=== PATIENT | female | born 1970 | race Caucasian/White ===

== ENCOUNTER → 2016-11-24 | Outpatient (CLI) | payer OTHER ==
[~2016-11-24] MED LIST: ASP325TEC PO; DULO30CA PO; FAMO20TA5 PO; HYDR-1231 PO; HYOS0.1217 PO; IBP200T PO; LISI-556 PO; LISI1TAB10 PO; LORA0.5T PO; NF-ESOM40C PO; NFPRILOC40 PO; QUIN1TAB PO; SCR1T1 PO; SULF1TAB7 PO; TRAM50TA2 PO
--- NOTE | 2016-11-24 13:16 | Diagnostic Imaging Report ---
Pelvic ultrasound. INDICATION: Pelvic pain. FINDINGS: There are no previous pelvic ultrasound examinations available for comparison. CT abdomen/pelvis exam of 12/28/2014 revealed that the uterus was surgically absent. There also appeared to be a few mesenteric nodes within the abdomen and pelvis. The largest of these nodes measured only 1.5 cm. On this study, the right ovary is identified. There is a 3.1 x 3.6 x 2.0 cm hypoechoic lesion associated with the superior pole of the right ovary. This has the appearance of a benign cyst. The left ovary could not be identified. There is no solid pelvic mass or free fluid collection evident. IMPRESSION: 1. There is a 3.1 x 3.6 x 2.0 cm benign-appearing cyst associated with the right ovary. There is no acute pelvic abnormality noted otherwise. 2. The left ovary could not be identified. 3. The uterus is surgically absent. Dictated by: Dictated on workstation # [id number]
--- NOTE | 2016-11-24 19:19 | Diagnostic Imaging Report ---
Digital mammogram bilateral screening. This is the patient's baseline study. At this time, there are no current complaints. The current study was also evaluated with a Computer Aided Detection (CAD) system. There are scattered fibroglandular densities in both breasts which could obscure a lesion. Deep in the medial aspect of the left breast in the 9 o'clock position approximately 15 CM from the nipple there is a group of 7 or 8 microcalcifications. These calcifications do not have a threatening appearance. Even so, I would recommend that they can be compressed and magnified in the ML and CC projections so that they can be better characterized. There is no primary or secondary sign of malignancy noted otherwise. IMPRESSION: Additional mammographic views of the left breast would be recommended for further study. ACR BI-RADS Category 0: Incomplete. (Needs additional imaging evaluation). Result letter will be mailed to the patient. Note: At least 10% of breast cancer is not imaged by mammography. Dictated by: Dictated on workstation # [id number]
== END ==
LOC: RAD 09:37
PROVIDERS: ATTEND Obstetrics & Gynecology
DX: Z12.31 Encounter for screening mammogram for malignant neoplasm of breast (principal); R92.0 Mammographic microcalcification found on diagnostic imaging of breast; N83.201 Unspecified ovarian cyst, right side; Z90.710 Acquired absence of both cervix and uterus; R10.2 Pelvic and perineal pain; Z87.42 Personal history of other diseases of the female genital tract
CPT/HCPCS: 76830; 76856

== ENCOUNTER → 2016-12-09 | Outpatient (CLI) | payer OTHER ==
--- OUTSIDE RECORDS SUMMARY | 2016-12-09 08:14 | XMS REPORT | Continuity of Care Document ---
Author Author [facility] Organization [facility] Address Unknown Phone Unavailable Allergies Active Description Code Type Severity Reaction Onset Reported/Identified Relationship to Patient Clinical Status Yes Percocet Drug Allergy N/A N/A 03/19/2009 Yes Percodan Drug Allergy N/A N/A 03/19/2009 Yes Percocet Drug Allergy 03/19/2009 Yes Percodan Drug Allergy 03/19/2009 Yes acetaminophen [id number] Drug Allergy Mild N/A 06/15/2014 Yes ENVIRONMENTAL ENVIRONMENTAL Mild N/A 06/15/2014 Yes oxycodone [id number] Drug Allergy Mild N/A 06/15/2014 Medications Problems Date Dx Coded Attending Type Code Diagnosis Diagnosed By 12/10/2008 401.1 BENIGN ESSENTIAL HYPERTENSION 12/10/2008 784.0 Headache 12/10/2008 PHILIP GOFF, MELANI S 401.1 BENIGN ESSENTIAL HYPERTENSION 12/10/2008 PHILIP GOFF, MELANI S 784.0 Headache 12/10/2008 PHILIP GOFF, MELANI S 401.1 BENIGN ESSENTIAL HYPERTENSION 12/10/2008 PHILIP GOFF, MELANI S 784.0 Headache 12/10/2008 PHILIP GOFF MELANI S 401.1 BENIGN ESSENTIAL HYPERTENSION 12/10/2008 PHILIP GOFF, MELANI S 784.0 Headache 12/10/2008 TAIWO DRAINAGE ENGINEER, VALERIE D 401.1 BENIGN ESSENTIAL HYPERTENSION 12/10/2008 TAIWO DRAINAGE ENGINEER, VALERIE D 784.0 Headache 12/10/2008 TAIWO DRAINAGE ENGINEER, VALERIE D 401.1 BENIGN ESSENTIAL HYPERTENSION 12/10/2008 TAIWO DRAINAGE ENGINEER, VALERIE D 784.0 Headache 12/10/2008 PHILIP GOFF MELANI S 401.1 BENIGN ESSENTIAL HYPERTENSION 12/10/2008 PHILIP GOFF MELANI S 784.0 Headache 12/10/2008 PHILIP WAITER, MELANI S 401.1 BENIGN ESSENTIAL HYPERTENSION 12/10/2008 PHILIP WAITER, MELANI S 784.0 Headache 12/10/2008 PHILIP WAITER, MELANI S 401.1 BENIGN ESSENTIAL HYPERTENSION 12/10/2008 PHIILP WAITER, MELANI S 784.0 Headache 12/10/2008 PHILIP WAITER, MELANI S 401.1 BENIGN ESSENTIAL HYPERTENSION 12/10/2008 PHILIP WAITER, MELANI S 784.0 Headache 12/10/2008 PHILIP WAITER, MELANI S 401.1 BENIGN ESSENTIAL HYPERTENSION 12/10/2008 PHILIP WAITER, MELANI S 784.0 Headache 12/10/2008 PHILIP WAITER, MELANI S 401.1 BENIGN ESSENTIAL HYPERTENSION 12/10/2008 PHILIP WAITER, MELANI S 784.0 Headache 12/10/2008 PHILIP WAITER, MELANI S 401.1 BENIGN ESSENTIAL HYPERTENSION 12/10/2008 PHILIP WAITER, MELANI S 784.0 Headache 12/10/2008 PHILIP WAITER, MELANI S 401.1 BENIGN ESSENTIAL HYPERTENSION 12/10/2008 PHILIP WAITER, MELANI S 784.0 Headache 12/10/2008 PHILIP WAITER, MELANI S 401.1 BENIGN ESSENTIAL HYPERTENSION 12/10/2008 PHILIP WAITER, MELANI S 784.0 Headache 12/10/2008 PHILIP WAITER, MELANI S 401.1 BENIGN ESSENTIAL HYPERTENSION 12/10/2008 PHILIP WAITER, MELANI S 784.0 Headache 12/10/2008 PHILIP WAITER, MELANI S 401.1 BENIGN ESSENTIAL HYPERTENSION 12/10/2008 PHILIP WAITER, MELANI S 784.0 Headache 12/10/2008 PHILIP WAITER, MELANI S 401.1 BENIGN ESSENTIAL HYPERTENSION 12/10/2008 PHILIP WAITER, MELANI S 784.0 Headache 12/10/2008 PHILIP WAITER, MELANI S 401.1 BENIGN ESSENTIAL HYPERTENSION 12/10/2008 PHILIP WAITER, MELANI S 784.0 Headache 12/10/2008 FANTASMA SHAH, SAM Covarrubias 401.1 BENIGN ESSENTIAL HYPERTENSION 12/10/2008 SAM MEEK PHD 784.0 Headache 12/10/2008 MELANI PALACIOS APRN S 401.1 BENIGN ESSENTIAL HYPERTENSION 12/10/2008 TOYA PALACIOS APRNNDA S 784.0 Headache 03/19/2009 724.2 lower back pain 03/19/2009 V72.31 Pelvic Exam (internal) 03/19/2009 V74.5 Visit For: Screening Exam Bact/spirochetal Venereal Disease 03/19/2009 PHILIP GOFF MELANI S 724.2 lower back pain 03/19/2009 TOYA PALACIOS APRNNDA S V72.31 Pelvic Exam (internal) 03/19/2009 TOYA PALACIOS APRNNDA S V74.5 Visit For: Screening Exam Bact/ spirochetal Venereal Disease 03/19/2009 TOYA PALACIOS APRNNDA S 724.2 lower back pain 03/19/2009 TOYA PALACIOS APRNNDA S V72.31 Pelvic Exam (internal) 03/19/2009 TOYA PALACIOS APRNNDA S V74.5 Visit For: Screening Exam Bact/ spirochetal Venereal Disease 03/19/2009 TOYA PALACIOS APRNNDA S 724.2 lower back pain 03/19/2009 TOYA PALACIOS APRNNDA S V72.31 Pelvic Exam (internal) 03/19/2009 TOYA PALACIOS APRNNDA S V74.5 Visit For: Screening Exam Bact/ spirochetal Venereal Disease 03/19/2009 TAIWO DRAINAGE ENGINEER, VALERIE D 724.2 lower back pain 03/19/2009 TAIWO DRAINAGE ENGINEER, VALERIE D V72.31 Pelvic Exam (internal) 03/19/2009 TAIWO DRAINAGE ENGINEER, VALERIE D V74.5 Visit For: Screening Exam Bact/spirochetal Venereal Disease 03/19/2009 TAIWO DRAINAGE ENGINEER, VALERIE D 724.2 lower back pain 03/19/2009 TAIWO DRAINAGE ENGINEER, VALERIE D V72.31 Pelvic Exam (internal) 03/19/2009 TAIWO DRAINAGE ENGINEER, VALERIE D V74.5 Visit For: Screening Exam Bact/spirochetal Venereal Disease 03/19/2009 PHILIP WAITER, MELANI S 724.2 lower back pain 03/19/2009 PHILIP WAITER, MELANI S V72.31 Pelvic Exam (internal) 03/19/2009 PHILIP WAITER, MELANI S V74.5 Visit For: Screening Exam Bact/ spirochetal Venereal Disease 03/19/2009 PHILIP WAITER, MELANI S 724.2 lower back pain 03/19/2009 PHILIP WAITER, MELANI S V72.31 Pelvic Exam (internal) 03/19/2009 PHILIP WAITER, MELANI S V74.5 Visit For: Screening Exam Bact/ spirochetal Venereal Disease 03/19/2009 PHILIP WAITER, MELANI S 724.2 lower back pain 03/19/2009 PHILIP WAITER, MELANI S V72.31 Pelvic Exam (internal) 03/19/2009 PHILIP WAITER, MELANI S V74.5 Visit For: Screening Exam Bact/ spirochetal Venereal Disease 03/19/2009 PHILIP WAITER, MELANI S 724.2 lower back pain 03/19/2009 PHILIP WAITER, MELANI S V72.31 Pelvic Exam (internal) 03/19/2009 PHILIP WAITER, MELANI S V74.5 Visit For: Screening Exam Bact/ spirochetal Venereal Disease 03/19/2009 PHILIP WAITER, MELANI S 724.2 lower back pain 03/19/2009 PHILIP WAITER, MELANI S V72.31 Pelvic Exam (internal) 03/19/2009 PHILIP WAITER, MELANI S V74.5 Visit For: Screening Exam Bact/ spirochetal Venereal Disease 03/19/2009 PHILIP WAITER, MELANI S 724.2 lower back pain 03/19/2009 PHILIP WAITER, MELANI S V72.31 Pelvic Exam (internal) 03/19/2009 PHILIP WAITER, MELANI S V74.5 Visit For: Screening Exam Bact/ spirochetal Venereal Disease 03/19/2009 PHILIP WAITER, MELANI S 724.2 lower back pain 03/19/2009 PHILIP WAITER, MELANI S V72.31 Pelvic Exam (internal) 03/19/2009 PHILIP WAITER, MELANI S V74.5 Visit For: Screening Exam Bact/ spirochetal Venereal Disease 03/19/2009 PHILIP WAITER, MELANI S 724.2 lower back pain 03/19/2009 PHILIP WAITER, MELANI S V72.31 Pelvic Exam (internal) 03/19/2009 PHILIP WAITER, MELANI S V74.5 Visit For: Screening Exam Bact/ spirochetal Venereal Disease 03/19/2009 PHILIP WAITER, MELANI S 724.2 lower back pain 03/19/2009 PHILIP WAITER, MELANI S V72.31 Pelvic Exam (internal) 03/19/2009 PHILIP WAITER, MELANI S V74.5 Visit For: Screening Exam Bact/ spirochetal Venereal Disease 03/19/2009 PHILIP WAITER, MELANI S 724.2 lower back pain 03/19/2009 PHILIP WAITER, MELANI S V72.31 Pelvic Exam (internal) 03/19/2009 PHILIP WAITER, MELANI S V74.5 Visit For: Screening Exam Bact/ spirochetal Venereal Disease 03/19/2009 PHILIP WAITER, MELANI S 724.2 LOWER BACK PAIN 03/19/2009 PHIILP WAITER, MELANI S V72.31 Pelvic Exam (internal) 03/19/2009 PHILIP WAITER, MELANI S V74.5 Visit For: Screening Exam Bact/ spirochetal Venereal Disease 03/19/2009 PHILIP WAITER, MELANI S 724.2 LOWER BACK PAIN 03/19/2009 PHILIP WAITER, MELANI S V72.31 Pelvic Exam (internal) 03/19/2009 PHILIP WAITER, MELANI S V74.5 Visit For: Screening Exam Bact/ spirochetal Venereal Disease 03/19/2009 PHILIP WAITER, MELANI S 724.2 LOWER BACK PAIN 03/19/2009 PHILIP WAITER, MELANI S V72.31 Pelvic Exam (internal) 03/19/2009 PHILIP WAITER, MELANI S V74.5 Visit For: Screening Exam Bact/ spirochetal Venereal Disease 03/19/2009 FANTASMA SHAH, SAM Covarrubias 724.2 LOWER BACK PAIN 03/19/2009 FANTASMA SHAH, SAM Covarrubias V72.31 Pelvic Exam (internal) 03/19/2009 FANTASMA SHAH, SAM Covarrubias V74.5 Visit For: Screening Exam Bact/ spirochetal Venereal Disease 03/19/2009 PHILIP WAITER, MELANI S 724.2 lower back pain 03/19/2009 PHILIP WAITER, MELANI S V72.31 Pelvic Exam (internal) 03/19/2009 PHILIP WAITER, MELANI S V74.5 Visit For: Screening Exam Bact/ spirochetal Venereal Disease 09/29/2010 Ot 278.00 09/29/2010 Ot 305.1 09/29/2010 Ot 311 09/29/2010 Ot 401.9 09/29/2010 Ot 530.81 09/29/2010 Ot 746.85 09/29/2010 Ot 786.59 09/29/2010 Ot V10.41 09/29/2010 Ot V85.38 10/13/2010 300.00 ANXIETY UNSPEC 10/13/2010 PHILIP WAITER, MELANI S 300.00 ANXIETY UNSPEC 10/13/2010 PHILIP WAITER, MELANI S 300.00 ANXIETY UNSPEC 10/13/2010 PHILIP WAITER, MELANI S 300.00 ANXIETY UNSPEC 10/13/2010 JEN MARAVILLA LCPCRY D 300.00 ANXIETY UNSPEC 10/13/2010 JEN MARAVILLA LCPCRY D 300.00 ANXIETY UNSPEC 10/13/2010 PHILIP WAITER, MELANI S 300.00 ANXIETY UNSPEC 10/13/2010 PHILIP WAITER, MELANI S 300.00 ANXIETY UNSPEC 10/13/2010 PHILIP WAITER, MELANI S 300.00 ANXIETY UNSPEC 10/13/2010 PHILIP WAITER, MELANI S 300.00 ANXIETY UNSPEC 10/13/2010 PHILIP WAITER, MELANI S 300.00 ANXIETY UNSPEC 10/13/2010 PHILIP WAITER, MELANI S 300.00 ANXIETY UNSPEC 10/13/2010 PHILIP WAITER, MELANI S 300.00 ANXIETY UNSPEC 10/13/2010 PHILIP WAITER, MELANI S 300.00 ANXIETY UNSPEC 10/13/2010 PHILIP WAITER, MELANI S 300.00 ANXIETY UNSPEC 10/13/2010 PHILIP WAITER, MELANI S 300.00 ANXIETY UNSPEC 10/13/2010 PHILIP WAITER, MELANI S 300.00 ANXIETY UNSPEC 10/13/2010 PHILIP WAITER, MELANI S 300.00 ANXIETY UNSPEC 10/13/2010 PHILIP WAITER, MELANI S 300.00 ANXIETY UNSPEC 10/13/2010 FANTASMA SHAH, SAM Covarrubias 300.00 ANXIETY UNSPEC 10/13/2010 PHILIP WAITER, MELANI S 300.00 ANXIETY UNSPEC 10/07/2011 V68.1 ISSUE OF REPEAT PRESCRIPTIONS 10/07/2011 PHILIP WAITER, MELANI S V68.1 ISSUE OF REPEAT PRESCRIPTIONS 10/07/2011 PHILIP WAITER, MELANI S V68.1 ISSUE OF REPEAT PRESCRIPTIONS 10/07/2011 PHILIP WAITER, MELANI S V68.1 ISSUE OF REPEAT PRESCRIPTIONS 10/07/2011 TAIWO DRAINAGE ENGINEER, VALERIE D V68.1 ISSUE OF REPEAT PRESCRIPTIONS 10/07/2011 TAIWO DRAINAGE ENGINEER, VALERIE D V68.1 ISSUE OF REPEAT PRESCRIPTIONS 10/07/2011 PHILIP WAITER, MELANI S V68.1 ISSUE OF REPEAT PRESCRIPTIONS 10/07/2011 PHILIP WAITER, MELANI S V68.1 ISSUE OF REPEAT PRESCRIPTIONS 10/07/2011 PHILIP WAITER, MELANI S V68.1 ISSUE OF REPEAT PRESCRIPTIONS 10/07/2011 PHILIP WAITER, MELANI S V68.1 ISSUE OF REPEAT PRESCRIPTIONS 10/07/2011 PHILIP WAITER, MELANI S V68.1 ISSUE OF REPEAT PRESCRIPTIONS 10/07/2011 PHILIP WAITER, MELANI S V68.1 ISSUE OF REPEAT PRESCRIPTIONS 10/07/2011 PHILIP WAITER, MELANI S V68.1 ISSUE OF REPEAT PRESCRIPTIONS 10/07/2011 PHILIP WAITER, MELANI S V68.1 ISSUE OF REPEAT PRESCRIPTIONS 10/07/2011 PHILIP WAITER, MELANI S V68.1 ISSUE OF REPEAT PRESCRIPTIONS 10/07/2011 PHILIP WAITER, MELANI S V68.1 ISSUE OF REPEAT PRESCRIPTIONS 10/07/2011 TOYA PALACIOS APRNNDA S V68.1 ISSUE OF REPEAT PRESCRIPTIONS 10/07/2011 TOYA PALACIOS APRNNDA S V68.1 ISSUE OF REPEAT PRESCRIPTIONS 10/07/2011 TOYA PALACIOS APRNNDA S V68.1 ISSUE OF REPEAT PRESCRIPTIONS 10/07/2011 FANTASMA SHAH, SAM Covarrubias V68.1 ISSUE OF REPEAT PRESCRIPTIONS 10/07/2011 TOYA PALACIOS APRNNDA S V68.1 ISSUE OF REPEAT PRESCRIPTIONS 09/03/2012 311 DEPRESSIVE DISORDER NOS 09/03/2012 780.79 fatigue 09/03/2012 783.1 WEIGHT GAIN ABNORMAL 09/03/2012 TOYA PALACIOS APRNNDA S 311 DEPRESSIVE DISORDER NOS 09/03/2012 TOYA PALACIOS APRNNDA S 780.79 fatigue 09/03/2012 PHILIP WAITER, MELANI S 783.1 WEIGHT GAIN ABNORMAL 09/03/2012 TOYA PALACIOS APRNNDA S 311 DEPRESSIVE DISORDER NOS 09/03/2012 TOYA PALACIOS APRNNDA S 780.79 fatigue 09/03/2012 PHILIP WAITER, MELANI S 783.1 WEIGHT GAIN ABNORMAL 09/03/2012 TOYA PALACIOS APRNNDA S 311 DEPRESSIVE DISORDER NOS 09/03/2012 TOYA PALACIOS APRNNDA S 780.79 fatigue 09/03/2012 PHILIP WAITER, EMLANI S 783.1 WEIGHT GAIN ABNORMAL 09/03/2012 TAIWO DRAINAGE ENGINEER, VALERIE D 311 DEPRESSIVE DISORDER NOS 09/03/2012 TAIWO DRAINAGE ENGINEER, VALERIE D 780.79 fatigue 09/03/2012 TAIWO DRAINAGE ENGINEER, VALERIE D 783.1 WEIGHT GAIN ABNORMAL 09/03/2012 TAIWO DRAINAGE ENGINEER, VALERIE D 311 DEPRESSIVE DISORDER NOS 09/03/2012 TAIWO DRAINAGE ENGINEER, VALERIE D 780.79 fatigue 09/03/2012 TAIWO DRAINAGE ENGINEER, VALERIE D 783.1 WEIGHT GAIN ABNORMAL 09/03/2012 PHILIP GOFF MELANI S 311 DEPRESSIVE DISORDER NOS 09/03/2012 PHILIP GOFF MELANI S 780.79 fatigue 09/03/2012 TOYA PALACIOS APRNNDA S 783.1 WEIGHT GAIN ABNORMAL 09/03/2012 PHILIP WAITER, MELANI S 311 DEPRESSIVE DISORDER NOS 09/03/2012 PHILIP WAITER, MELANI S 780.79 fatigue 09/03/2012 PHILIP WAITER, MELANI S 783.1 WEIGHT GAIN ABNORMAL 09/03/2012 PHILIP WAITER, MELANI S 311 DEPRESSIVE DISORDER NOS 09/03/2012 PHILIP WAITER, MELANI S 780.79 fatigue 09/03/2012 PHILIP MARTINESN, MELANI S 783.1 WEIGHT GAIN ABNORMAL 09/03/2012 PHILIP WAITER, MELANI S 311 DEPRESSIVE DISORDER NOS 09/03/2012 PHILIP WAITER, MELANI S 780.79 fatigue 09/03/2012 PHILIP WAITER, MELANI S 783.1 WEIGHT GAIN ABNORMAL 09/03/2012 PHILIP WAITER, MELANI S 311 DEPRESSIVE DISORDER NOS 09/03/2012 PHILIP MARTINESN, MELANI S 780.79 fatigue 09/03/2012 PHILIP MARTINESN, MELANI S 783.1 WEIGHT GAIN ABNORMAL 09/03/2012 PHILIP MARTINESN, MELANI S 311 DEPRESSIVE DISORDER NOS 09/03/2012 PHILIP MARTINESN, MELANI S 780.79 fatigue 09/03/2012 PHILIP MARTINESN, MELANI S 783.1 WEIGHT GAIN ABNORMAL 09/03/2012 PHILIP MARTINESN, MELANI S 311 DEPRESSIVE DISORDER NOS 09/03/2012 PHILIP MARTINESN, MELANI S 780.79 fatigue 09/03/2012 PHILIP MARTINESN, MELANI S 783.1 WEIGHT GAIN ABNORMAL 09/03/2012 PHILIP MARTINESN, MELANI S 311 DEPRESSIVE DISORDER NOS 09/03/2012 PHILIP MARTINESN, MELANI S 780.79 fatigue 09/03/2012 PHILIP WAITER, MELANI S 783.1 WEIGHT GAIN ABNORMAL 09/03/2012 PHILIP WAITER, MELANI S 311 DEPRESSIVE DISORDER NOS 09/03/2012 PHILIP WAITER, MELANI S 780.79 fatigue 09/03/2012 PHILIP WAITER, MELANI S 783.1 WEIGHT GAIN ABNORMAL 09/03/2012 PHILIP WAITER, MELANI S 311 DEPRESSIVE DISORDER NOS 09/03/2012 PHILIP WAITER, MELANI S 780.79 fatigue 09/03/2012 PHILIP GOFF, MELAIN S 783.1 WEIGHT GAIN ABNORMAL 09/03/2012 PHILIP GOFF, MELANI S 311 DEPRESSIVE DISORDER NOS 09/03/2012 PHILIP MARTINESN, MELANI S 780.79 FATIGUE 09/03/2012 PHILIP MARTINESN, MELANI S 783.1 WEIGHT GAIN ABNORMAL 09/03/2012 PHILIP GOFF, MELANI S 311 DEPRESSIVE DISORDER NOS 09/03/2012 PHILIP MARTINESN, MELANI S 780.79 FATIGUE 09/03/2012 PHILIP MARTINESN, MELANI S 783.1 WEIGHT GAIN ABNORMAL 09/03/2012 PHILIP GOFF, MELANI S 311 DEPRESSIVE DISORDER NOS 09/03/2012 PHILIP GOFF, MELANI S 780.79 FATIGUE 09/03/2012 PHILIP GOFF, MELANI S 783.1 WEIGHT GAIN ABNORMAL 09/03/2012 SAM MEEK PHD 311 DEPRESSIVE DISORDER NOS 09/03/2012 SAM MEEK PHD 780.79 FATIGUE 09/03/2012 SAM MEEK PHD 783.1 WEIGHT GAIN ABNORMAL 09/03/2012 PHILIPGRETTA MARTINESN, MELANI S 311 DEPRESSIVE DISORDER NOS 09/03/2012 PHILIPGRETTA GOFF, MELANI S 780.79 fatigue 09/03/2012 PHILIPGRETTA MARTINESN, MELANI S 783.1 WEIGHT GAIN ABNORMAL 09/25/2012 530.81 ESOPHAGEAL REFLUX 09/25/2012 V76.10 BREAST CANCER SCREENING 09/25/2012 V76.2 CERVICAL CANCER SCREENING (PAP SMEAR) 09/25/2012 PHILIP WAITER, MELANI S 530.81 ESOPHAGEAL REFLUX 09/25/2012 PHILIP WAITER, MELANI S V76.10 BREAST CANCER SCREENING 09/25/2012 PHILIP WAITER, MELANI S V76.2 CERVICAL CANCER SCREENING (PAP SMEAR) 09/25/2012 PHILIP WAITER, MELANI S 530.81 ESOPHAGEAL REFLUX 09/25/2012 PHILIP WAITER, MELANI S V76.10 BREAST CANCER SCREENING 09/25/2012 PHILIP WAITER, MELANI S V76.2 CERVICAL CANCER SCREENING (PAP SMEAR) 09/25/2012 PHILIP WAITER, MELANI S 530.81 ESOPHAGEAL REFLUX 09/25/2012 PHILIP GOFF, MELANI S V76.10 BREAST CANCER SCREENING 09/25/2012 PHILIP GOFF, MELANI S V76.2 CERVICAL CANCER SCREENING (PAP SMEAR) 09/25/2012 TAIWO DRAINAGE ENGINEER, VALERIE D 530.81 ESOPHAGEAL REFLUX 09/25/2012 TAIWO DRAINAGE ENGINEER, VALERIE D V76.10 BREAST CANCER SCREENING 09/25/2012 TAIWO DRAINAGE ENGINEER, VALERIE D V76.2 CERVICAL CANCER SCREENING (PAP SMEAR) 09/25/2012 TAIWO DRAINAGE ENGINEER, VALERIE D 530.81 ESOPHAGEAL REFLUX 09/25/2012 TAIWO DRAINAGE ENGINEER, VALERIE D V76.10 BREAST CANCER SCREENING 09/25/2012 TAIWO DRAINAGE ENGINEER, VALERIE D V76.2 CERVICAL CANCER SCREENING (PAP SMEAR) 09/25/2012 PHILIP GOFF, MELANI S 530.81 ESOPHAGEAL REFLUX 09/25/2012 PHILIP GOFF, MELANI S V76.10 BREAST CANCER SCREENING 09/25/2012 PHILIP GOFF, MELANI S V76.2 CERVICAL CANCER SCREENING (PAP SMEAR) 09/25/2012 PHILIP GOFF, MELANI S 530.81 ESOPHAGEAL REFLUX 09/25/2012 PHILIP GOFF, MELANI S V76.10 BREAST CANCER SCREENING 09/25/2012 PHILIP GOFF, MELANI S V76.2 CERVICAL CANCER SCREENING (PAP SMEAR) 09/25/2012 PHILIP WAITER, MELANI S 530.81 ESOPHAGEAL REFLUX 09/25/2012 PHILIP GOFF, MELANI S V76.10 BREAST CANCER SCREENING 09/25/2012 PHILIP GOFF, MELANI S V76.2 CERVICAL CANCER SCREENING (PAP SMEAR) 09/25/2012 PHILIP WAITER, MELANI S 530.81 ESOPHAGEAL REFLUX 09/25/2012 PHILIP WAITER, MELANI S V76.10 BREAST CANCER SCREENING 09/25/2012 PHILIP WAITER, MELANI S V76.2 CERVICAL CANCER SCREENING (PAP SMEAR) 09/25/2012 PHILIP WAITER, MELANI S 530.81 ESOPHAGEAL REFLUX 09/25/2012 PHILIP GOFF, MELANI S V76.10 BREAST CANCER SCREENING 09/25/2012 PHILIP WAITER, MELANI S V76.2 CERVICAL CANCER SCREENING (PAP SMEAR) 09/25/2012 PHILIP WAITER, MELANI S 530.81 ESOPHAGEAL REFLUX 09/25/2012 PHILIP WAITER, MELANI S V76.10 BREAST CANCER SCREENING 09/25/2012 PHILIP WAITER, EMLANI S V76.2 CERVICAL CANCER SCREENING (PAP SMEAR) 09/25/2012 PHILIP WAITER, MELANI S 530.81 ESOPHAGEAL REFLUX 09/25/2012 PHILIP WAITER, MELANI S V76.10 BREAST CANCER SCREENING 09/25/2012 PHILIP WAITER, MELANI S V76.2 CERVICAL CANCER SCREENING (PAP SMEAR) 09/25/2012 PHILIP WAITER, MELANI S 530.81 ESOPHAGEAL REFLUX 09/25/2012 PHILIP WAITER, MELANI S V76.10 BREAST CANCER SCREENING 09/25/2012 PHILIP WAITER, MELANI S V76.2 CERVICAL CANCER SCREENING (PAP SMEAR) 09/25/2012 PHILIP WAITER, MELANI S 530.81 ESOPHAGEAL REFLUX 09/25/2012 PHILIP WAITER, MELANI S V76.10 BREAST CANCER SCREENING 09/25/2012 PHILIP WAITER, MELANI S V76.2 CERVICAL CANCER SCREENING (PAP SMEAR) 09/25/2012 PHILIP WAITER, MELANI S 530.81 ESOPHAGEAL REFLUX 09/25/2012 PHILIP WAITER, MELANI S V76.10 BREAST CANCER SCREENING 09/25/2012 PHILIP WAITER, MELANI S V76.2 CERVICAL CANCER SCREENING (PAP SMEAR) 09/25/2012 PHILIP WAITER, MELANI S 530.81 ESOPHAGEAL REFLUX 09/25/2012 PHILIP WAITER, MELANI S V76.10 BREAST CANCER SCREENING 09/25/2012 PHILIP WAITER, MELANI S V76.2 CERVICAL CANCER SCREENING (PAP SMEAR) 09/25/2012 PHILIP WAITER, MELANI S 530.81 ESOPHAGEAL REFLUX 09/25/2012 PHILIP WAITER, MELANI S V76.10 BREAST CANCER SCREENING 09/25/2012 PHILIP WAITER, MELANI S V76.2 CERVICAL CANCER SCREENING (PAP SMEAR) 09/25/2012 PHILIP GOFF, MELANI S 530.81 ESOPHAGEAL REFLUX 09/25/2012 PHILIP GOFF, MELANI S V76.10 BREAST CANCER SCREENING 09/25/2012 PHILIP GOFF, MELANI S V76.2 CERVICAL CANCER SCREENING (PAP SMEAR) 09/25/2012 SAM MEEK PHD 530.81 ESOPHAGEAL REFLUX 09/25/2012 FANTASMA SHAH, SAM Covarrubias V76.10 BREAST CANCER SCREENING 09/25/2012 SAM MEEK PHD V76.2 CERVICAL CANCER SCREENING (PAP SMEAR) 09/25/2012 PHILIP GOFF, MELANI S 530.81 ESOPHAGEAL REFLUX 09/25/2012 PHILIP GOFF, MELANI S V76.10 BREAST CANCER SCREENING 09/25/2012 PHILIP GOFF, MELANI S V76.2 CERVICAL CANCER SCREENING (PAP SMEAR) 10/20/2012 PHILIP GOFF, MELANI S 789.03 ABDOMINAL PAIN RIGHT LOWER QUADRANT 10/20/2012 PHILIP GOFF, MELANI S 789.03 ABDOMINAL PAIN RIGHT LOWER QUADRANT 10/20/2012 PHILIP GOFF, MELANI S 789.03 ABDOMINAL PAIN RIGHT LOWER QUADRANT 10/20/2012 TAIWO DRAINAGE ENGINEER, VALERIE D 789.03 ABDOMINAL PAIN RIGHT LOWER QUADRANT 10/20/2012 TAIWO DRAINAGE ENGINEER, VALERIE D 789.03 ABDOMINAL PAIN RIGHT LOWER QUADRANT 10/20/2012 PHILIP GOFF, MELANI S 789.03 ABDOMINAL PAIN RIGHT LOWER QUADRANT 10/20/2012 PHILIP GOFF, MELANI S 789.03 ABDOMINAL PAIN RIGHT LOWER QUADRANT 10/20/2012 PHILIP GOFF, MELANI S 789.03 ABDOMINAL PAIN RIGHT LOWER QUADRANT 10/20/2012 PHILIP WAITER, MELANI S 789.03 ABDOMINAL PAIN RIGHT LOWER QUADRANT 10/20/2012 PHILIP GOFF, MELANI S 789.03 ABDOMINAL PAIN RIGHT LOWER QUADRANT 10/20/2012 PHILIP GOFF, MELANI S 789.03 ABDOMINAL PAIN RIGHT LOWER QUADRANT 10/20/2012 PHILIP GOFF, MELANI S 789.03 ABDOMINAL PAIN RIGHT LOWER QUADRANT 10/20/2012 PHILIP GOFF, MELANI S 789.03 ABDOMINAL PAIN RIGHT LOWER QUADRANT 10/20/2012 PHILIP WAITER, MELANI S 789.03 ABDOMINAL PAIN RIGHT LOWER QUADRANT 10/20/2012 PHILIP WAITER, MELANI S 789.03 ABDOMINAL PAIN RIGHT LOWER QUADRANT 10/20/2012 PHILIP WAITER, MELANI S 789.03 ABDOMINAL PAIN RIGHT LOWER QUADRANT 10/20/2012 PHILIP WAITER, MELANI S 789.03 ABDOMINAL PAIN RIGHT LOWER QUADRANT 10/20/2012 PHILIP WAITER, MELANI S 789.03 ABDOMINAL PAIN RIGHT LOWER QUADRANT 10/20/2012 FANTASMA SHAH, SAM Covarrubias 789.03 ABDOMINAL PAIN RIGHT LOWER QUADRANT 12/12/2013 PHILIP WAITER, MELANI S 214.8 LIPOMA OF OTHER SPECIFIED SITES 12/12/2013 PHILIP WAITER, MELANI S 789.06 ABDOMINAL PAIN EPIGASTRIC 12/12/2013 PHILIP WAITER, MELANI S 214.8 LIPOMA OF OTHER SPECIFIED SITES 12/12/2013 PHILIP WAITER, MELANI S 789.06 ABDOMINAL PAIN EPIGASTRIC 12/12/2013 PHILIP WAITER, MELANI S 214.8 LIPOMA OF OTHER SPECIFIED SITES 12/12/2013 PHILIP WAITER, MELANI S 789.06 ABDOMINAL PAIN EPIGASTRIC 12/12/2013 PHILIP WAITER, MELANI S 214.8 LIPOMA OF OTHER SPECIFIED SITES 12/12/2013 PHILIP WAITER, MELANI S 789.06 ABDOMINAL PAIN EPIGASTRIC 12/12/2013 PHILIP WAITER, MELANI S 214.8 LIPOMA OF OTHER SPECIFIED SITES 12/12/2013 PHILIP WAITER, MELANI S 789.06 ABDOMINAL PAIN EPIGASTRIC 12/12/2013 PHILIP WAITER, MELANI S 214.8 LIPOMA OF OTHER SPECIFIED SITES 12/12/2013 PHILIP WAITER, MELANI S 789.06 ABDOMINAL PAIN EPIGASTRIC 12/12/2013 PHILIP WAITER, MELANI S 214.8 LIPOMA OF OTHER SPECIFIED SITES 12/12/2013 PHILIP WAITER, MELANI S 789.06 ABDOMINAL PAIN EPIGASTRIC 12/12/2013 PHILIP WAITER, MELANI S 214.8 LIPOMA OF OTHER SPECIFIED SITES 12/12/2013 PHILIP WAITER, MELANI S 789.06 ABDOMINAL PAIN EPIGASTRIC 12/12/2013 PHILIP WAITER, MELANI S 214.8 LIPOMA OF OTHER SPECIFIED SITES 12/12/2013 PHILIP WAITER, MELANI S 789.06 ABDOMINAL PAIN EPIGASTRIC 12/12/2013 PHILIP WAITER, MELANI S 214.8 LIPOMA OF OTHER SPECIFIED SITES 12/12/2013 PHILIP WAITER, MELANI S 789.06 ABDOMINAL PAIN EPIGASTRIC 12/12/2013 PHILIP WAITER, MELANI S 214.8 LIPOMA OF OTHER SPECIFIED SITES 12/12/2013 PHILIP WAITER, MELANI S 789.06 ABDOMINAL PAIN EPIGASTRIC 12/12/2013 PHILIP WAITER, MELANI S 214.8 LIPOMA OF OTHER SPECIFIED SITES 12/12/2013 PHILIP WAITER, MELANI S 789.06 ABDOMINAL PAIN EPIGASTRIC 12/12/2013 FANTASMA PHD, SAM Covarrubias 214.8 LIPOMA OF OTHER SPECIFIED SITES 12/12/2013 FANTASMA SHAH, SAM Covarrubias 789.06 ABDOMINAL PAIN EPIGASTRIC 12/26/2013 PHILPI WAITER, MELANI S 700 CALLUS/CORN 12/26/2013 PHILIP WAITER, MELANI S 700 CALLUS/CORN 12/26/2013 PHILIP WAITER, MELANI S 700 CALLUS/CORN 12/26/2013 PHILIP WAITER, MELANI S 700 CALLUS/CORN 12/26/2013 PHILIP WAITER, MELANI S 700 CALLUS/CORN 12/26/2013 PHILIP WAITER, MELANI S 700 CALLUS/CORN 12/26/2013 PHILIP WAITER, MELANI S 700 CALLUS/CORN 12/26/2013 PHILIP WAITER, MELANI S 700 CALLUS/CORN 12/26/2013 PHILIP WAITER, MELANI S 700 CALLUS/CORN 12/26/2013 PHILIP WAITER, MELANI S 700 CALLUS/CORN 12/26/2013 PHILIP WAITER, MELANI S 700 CALLUS/CORN 12/26/2013 FANTASMA SHAH, SAM Covarrubias 700 CALLUS/CORN 03/20/2014 PHILIP WAITER, MELANI S 787.99 OTHER SYMPTOMS INVOLVING DIGESTIVE SYSTEM 03/20/2014 PHILIP WAITER, MELANI S 787.99 OTHER SYMPTOMS INVOLVING DIGESTIVE SYSTEM 03/20/2014 PHILIP WAITER, MELANI S 787.99 OTHER SYMPTOMS INVOLVING DIGESTIVE SYSTEM 03/20/2014 PHILIP WAITER, MELANI S 787.99 OTHER SYMPTOMS INVOLVING DIGESTIVE SYSTEM 03/20/2014 PHILIP WAITER, MELANI S 787.99 OTHER SYMPTOMS INVOLVING DIGESTIVE SYSTEM 03/20/2014 PHILIP WAITER, MELANI S 787.99 OTHER SYMPTOMS INVOLVING DIGESTIVE SYSTEM 03/20/2014 PHILIP WAITER, MELANI S 787.99 OTHER SYMPTOMS INVOLVING DIGESTIVE SYSTEM 03/20/2014 FANTASMA PHD, SAM Covarrubias 787.99 OTHER SYMPTOMS INVOLVING DIGESTIVE SYSTEM 06/03/2014 PHILIP WAITER, MELANI S 461.9 SINUSITIS ACUTE 06/03/2014 PHILIP WAITER, MELANI S 461.9 SINUSITIS ACUTE 06/03/2014 PHILIP WAITER, MELANI S 461.9 SINUSITIS ACUTE 06/03/2014 PHILIP WAITER, MELANI S 461.9 SINUSITIS ACUTE 06/03/2014 PHILIP WAITER, MELANI S 461.9 SINUSITIS ACUTE 06/03/2014 PHILIP WAITER, MELANI S 461.9 SINUSITIS ACUTE 06/03/2014 FANTASMA PHD, SAM Covarrubias 461.9 SINUSITIS ACUTE 06/15/2014 WALKER BOOTHE Ot 724.2 LUMBAGO 06/17/2014 ARA SU DO Ot 530.81 ESOPHAGEAL REFLUX 06/17/2014 ARA SU DO Ot 562.10 DIVERTICULOSIS COLON (W/O MENT OF HEMORR 06/17/2014 ARA SU DO Ot 787.99 OTHER GI SYSTEM SYMPTOMS 07/12/2014 WALKER BOOTHE Ot 276.50 VOLUME DEPLETION, UNSPECIFIED 07/12/2014 WALKER BOOTHE Ot 682.4 CELLULITIS OF HAND 07/12/2014 WALKER BOOTHE Ot 789.01 ABDOMINAL PAIN, RIGHT UPPER QUADRANT 07/12/2014 WALKER BOOTHE Ot 789.06 ABDOMINAL PAIN, EPIGASTRIC 07/12/2014 WALKER BOOTHE Ot 914.5 INSECT BITE HAND-INFECT 07/12/2014 ANDI BOOTHETCHEN L Ot E000.8 OTHER EXTERNAL CAUSE STATUS 07/12/2014 NEIL FAUSTINANDIWALKER L Ot E849.0 ACCIDENT IN HOME 07/12/2014 NEIL FAUSTINANDIWALKER L Ot E906.4 NONVENOM ARTHROPOD BITE 07/14/2014 PHILIP WAITER, MELANI S 682.2 CELLULITIS AND ABSCESS OF TRUNK 07/14/2014 PHILIP WAITER, MELANI S 682.2 CELLULITIS AND ABSCESS OF TRUNK 07/14/2014 PHILIP WAITER, MELANI S 682.2 CELLULITIS AND ABSCESS OF TRUNK 07/14/2014 PHILIP WAITER, MELANI S 682.2 CELLULITIS AND ABSCESS OF TRUNK 07/14/2014 PHILIP WAITER, MELANI S 682.2 CELLULITIS AND ABSCESS OF TRUNK 07/14/2014 FANTASMA PHD, SAM Covarrubias 682.2 CELLULITIS AND ABSCESS OF TRUNK 07/17/2014 PHILIP WAITER, MELANI S 787.01 NAUSEA WITH VOMITING 07/17/2014 PHILIP WAITER, MELANI S 789.00 ABDOMINAL PAIN UNSPECIFIED SITE 07/17/2014 PHILIP WAITER, MELANI S 787.01 NAUSEA WITH VOMITING 07/17/2014 PHILIP WAITER, MELANI S 789.00 ABDOMINAL PAIN UNSPECIFIED SITE 07/17/2014 PHILIP WAITER, MELANI S 787.01 NAUSEA WITH VOMITING 07/17/2014 PHILIP WAITER, MELANI S 789.00 ABDOMINAL PAIN UNSPECIFIED SITE 07/17/2014 PHILIP WAITER, MELANI S 787.01 NAUSEA WITH VOMITING 07/17/2014 PHILIP WAITER, MELANI S 789.00 ABDOMINAL PAIN UNSPECIFIED SITE 07/17/2014 FANTASMA PHD, SAM Covarrubias 787.01 NAUSEA WITH VOMITING 07/17/2014 FANTASMA PHD, SAM Covarrubias 789.00 ABDOMINAL PAIN UNSPECIFIED SITE 08/03/2014 EDA BARTON DO Ot 789.01 ABDOMINAL PAIN, RIGHT UPPER QUADRANT 09/17/2014 PHILIP WAITER, MELANI S V15.82 NICOTINE ABUSE 09/17/2014 PHILIP WAITER, MELANI S V15.82 NICOTINE ABUSE 09/17/2014 MELANI PALACIOS APRN V15.82 NICOTINE ABUSE 09/17/2014 FANTASMA PHD, SAM Covarrubias V15.82 NICOTINE ABUSE 10/09/2014 MELANI PALACIOS [employer] PRO[employer] CHAIR Ot 682.2 10/09/2014 MELANI PALACIOS [employer] PROGRAM CHAIR Ot 787.01 10/09/2014 MELANI PALACIOS [employer] ST[employer] PROGRAM CHAIR Ot 789.00 10/28/2014 MELANI PALACIOS [employer] STUD[employer] PROGRAM CHAIR Ot 682.2 10/28/2014 MELANI PALACIOS [employer] STUD[employer] PROGRAM CHAIR Ot 787.01 10/28/2014 MELANI PALACIOS [employer] STUD[employer] PROGRAM CHAIR Ot 789.00 12/02/2014 MELANI PALACIOS APRN 077.99 UNSPECIFIED DISEASES OF CONJUNCTIVA DUE TO VIRUSES 12/02/2014 MELANI PALACIOS APRN S 077.99 UNSPECIFIED DISEASES OF CONJUNCTIVA DUE TO VIRUSES 12/02/2014 FANTASMA SHAH, SAM Covarrubias 077.99 UNSPECIFIED DISEASES OF CONJUNCTIVA DUE TO VIRUSES 12/29/2014 Ot 305.1 TOBACCO USE DISORDER 12/29/2014 Ot 401.9 HYPERTENSION NOS 12/29/2014 Ot 496 CHR AIRWAY OBSTRUCT NEC 12/29/2014 Ot 530.81 ESOPHAGEAL REFLUX 12/29/2014 Ot 535.50 UNSP GASTRITIS GASTRODUODENITIS W/O ME 01/19/2015 MELANI PALACIOS APRN S 557.1 CHRONIC VASCULAR INSUFFICIENCY OF INTESTINE 01/19/2015 FANTASMA SHAH, SAM Covarrubias 557.1 CHRONIC VASCULAR INSUFFICIENCY OF INTESTINE 02/06/2015 MELANI PALACIOS [employer] PROGRAM CHAIR Ot 440.8 02/06/2015 MELANI PALACIOS [employer] PROGRAM CHAIR Ot 557.1 02/06/2015 MELANI PALACIOS [employer]UD[employer] PROGRAM CHAIR Ot 592.0 02/18/2015 MELANI PALACIOS [employer] ST[employer] PROGRAM CHAIR Ot 440.8 02/18/2015 MELANI PALACIOS [employer] PROGRAM CHAIR Ot 557.1 02/18/2015 MELANI PALACIOSP Ot 592.0 02/23/2015 FANTASMA SHAH, SAM Covarrubias 296.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 02/23/2015 FANTASMA PHD, SAM Covarrubias 300.02 AN GEN ANXIETY 10/07/2016 Ot 724.2 LUMBAGO 10/07/2016 Ot V17.81 FAMILY HISTORY, OSTEOPOROSIS 10/07/2016 Ot V82.81 SCREENING FOR OSTEOPOROSIS 10/07/2016 ARA SU DO Ot 305.20 CANNABIS ABUSE-UNSPEC 10/07/2016 ARA SU DO Ot 530.81 ESOPHAGEAL REFLUX 10/07/2016 ARA SU DO D Ot 787.99 OTHER GI SYSTEM SYMPTOMS 10/07/2016 ARA SU DO Ot V64.3 NO PROC FOR REASONS NEC 10/07/2016 ARA SU DO Ot V72.84 EXAM PRE-OPERATIVE NOS 10/07/2016 ARA SU DO D Ot V72.84 EXAM PRE-OPERATIVE NOS 10/07/2016 WALKER BOOTHE Ot 787.02 NAUSEA ALONE 10/07/2016 WALKER BOOTHE Ot 789.09 ABDOMINAL PAIN, OTHER SPECIFIED SITE 10/07/2016 MELANI PALACIOS [employer] PROGRAM CHAIR Ot 682.2 CELLULITIS OF TRUNK 10/07/2016 MELANI PALACIOS [employer] PROGRAM CHAIR Ot 787.01 NAUSEA WITH VOMITING 10/07/2016 MELANI PALACIOS [employer] PROGRAM CHAIR Ot 789.00 ABDOMINAL PAIN, UNSPECIFIED SITE 10/07/2016 MELANI PALACIOS [employer] PROGRAM CHAIR Ot 440.8 ATHEROSCLEROSIS NEC 10/07/2016 MELANI PALACIOS [employer] PROGRAM CHAIR Ot 557.1 CHR VASC INSUFF INTEST 10/07/2016 MELANI PALACIOS [employer] PROGRAM CHAIR Ot 592.0 CALCULUS OF KIDNEY 10/10/2016 Ot 724.2 LUMBAGO 10/10/2016 Ot V17.81 FAMILY HISTORY, OSTEOPOROSIS 10/10/2016 Ot V82.81 SCREENING FOR OSTEOPOROSIS 10/10/2016 SU ARA Marci Ot 305.20 CANNABIS ABUSE-UNSPEC 10/10/2016 ARA SU DO Ot 530.81 ESOPHAGEAL REFLUX 10/10/2016 SU RAA EVANS Ot 787.99 OTHER GI SYSTEM SYMPTOMS 10/10/2016 ARA SU DO Ot V64.3 NO PROC FOR REASONS NEC 10/10/2016 ARA SU DO Ot V72.84 EXAM PRE-OPERATIVE NOS 10/10/2016 SU ARA EVANS Marci Ot V72.84 EXAM PRE-OPERATIVE NOS 10/10/2016 WALKER BOOTHE Ot 787.02 NAUSEA ALONE 10/10/2016 WALKER BOOTHE Ot 789.09 ABDOMINAL PAIN, OTHER SPECIFIED SITE 10/10/2016 MELANI PALACIOS [employer] PROGRAM CHAIR Ot 682.2 CELLULITIS OF TRUNK 10/10/2016 MELANI PALACIOS [employer] PROGRAM CHAIR Ot 787.01 NAUSEA WITH VOMITING 10/10/2016 MELANI PALACIOS [employer] PROGRAM CHAIR Ot 789.00 ABDOMINAL PAIN, UNSPECIFIED SITE 10/10/2016 MELANI PALACIOS [employer] PROGRAM CHAIR Ot 440.8 ATHEROSCLEROSIS NEC 10/10/2016 MELANI PALACIOS [employer] PROGRAM CHAIR Ot 557.1 CHR VASC INSUFF INTEST 10/10/2016 MELANI PALACIOS A[employer]UDIES PROGRAM CHAIR Ot 592.0 CALCULUS OF KIDNEY 10/10/2016 MELANI PALACIOS A[employer]UD[employer] PROGRAM CHAIR Ot 682.2 CELLULITIS OF TRUNK 10/10/2016 MELANI PALACIOS A[employer] PROGRAM CHAIR Ot 787.01 NAUSEA WITH VOMITING 10/10/2016 MELANI PALACIOS A[employer]UD[employer] PROGRAM CHAIR Ot 789.00 ABDOMINAL PAIN, UNSPECIFIED SITE 10/10/2016 MELANI PALACIOS A[employer]UDIES PROGRAM CHAIR Ot 682.2 CELLULITIS OF TRUNK 10/10/2016 MELANI PALACIOS A[employer]UDIES PROGRAM CHAIR Ot 787.01 NAUSEA WITH VOMITING 10/10/2016 MELANI PALACIOS A[employer]UD[employer] PROGRAM CHAIR Ot 789.00 ABDOMINAL PAIN, UNSPECIFIED SITE 10/11/2016 MELANI PALACIOS [employer] PROGRAM CHAIR Ot M54.5 LOW BACK PAIN 11/16/2016 MELANI PALACIOS [employer] PROGRAM CHAIR Ot M54.5 LOW BACK PAIN 11/17/2016 MELANI PALACIOS A[employer]UD[employer] PROGRAM CHAIR Ot M54.5 LOW BACK PAIN 11/24/2016 MELANI PALACIOS A[employer]UDIES PROGRAM CHAIR Ot 682.2 CELLULITIS OF TRUNK 11/24/2016 MELANI PALACIOS A[employer]UDIES PROGRAM CHAIR Ot 787.01 NAUSEA WITH VOMITING 11/24/2016 MELANI PALACIOS A[employer]UD[employer] PROGRAM CHAIR Ot 789.00 ABDOMINAL PAIN, UNSPECIFIED SITE 11/24/2016 MELANI PALACIOS A[employer]UD[employer] PROGRAM CHAIR Ot M54.5 LOW BACK PAIN 11/25/2016 SYLWIA PAYTON DO Ot N83.201 UNSPECIFIED OVARIAN CYST, RIGHT SIDE 11/25/2016 SYLWIA PAYTON DO Ot R10.2 PELVIC AND PERINEAL PAIN 11/25/2016 SYLWIA PAYTON DO Ot R92.0 MAMMOGRAPHIC MICROCALCIFICATION FOUND ON 11/25/2016 SYLWIA PAYTON DO Ot Z12.31 ENCNTR SCREEN MAMMOGRAM FOR MALIGNANT NE 11/25/2016 SYLWIA PAYTON DO Ot Z87.42 PERSONAL HISTORY OF OTH DISEASES OF THE 11/25/2016 SYLWIA PAYTON DO Ot Z90.710 ACQUIRED ABSENCE OF BOTH CERVIX AND UTER 11/25/2016 SYLWIA PAYTON DO Ot N83.201 UNSPECIFIED OVARIAN CYST, RIGHT SIDE 11/25/2016 SYLWIA PAYTON DO Ot R10.2 PELVIC AND PERINEAL PAIN 11/25/2016 SYLWIA PAYTON DO Ot R92.0 MAMMOGRAPHIC MICROCALCIFICATION FOUND ON 11/25/2016 SYLWIA PAYTON DO Ot Z12.31 ENCNTR SCREEN MAMMOGRAM FOR MALIGNANT NE 11/25/2016 SYLWIA PAYTON DO Ot Z87.42 PERSONAL HISTORY OF OTH DISEASES OF THE 11/25/2016 SYLWIA PAYTON DO Ot Z90.710 ACQUIRED ABSENCE OF BOTH CERVIX AND UTER Procedures Code [place] [address] PAP SMEAR 2011 Physical Physical Therapy, [facility] 10/10/2012 97693 MAMMOGRAM, SCREENING 10/20/2012 Q0091 PAP SMEAR OBTAIN SMEAR 10/20/2012 27829 UA LONG DIP 10/20 11621 ROUTINE VENIPUNCTURE 03/06/2013 81126 CBC 03/06/2013 04025 CMP 03/06/2013 20049 LIPID PANEL 03/06 8284926 GFR CALC (RESULT ONLY) 03/06/2013 25134 TSH 03/06/2013 81321 INSULIN LEVEL 06/2013 75008 PSYCH DIAGNOSTIC EVALUATION 10/29/2013 93928 PSYTX PT&/FAMILY 45 MINUTES 11/12/2013 06045 ROUTINE VENIPUNCTURE 12/12/2013 64845 CBC 12/12/2013 7065003 GFR CALC (RESULT ONLY) 12/12/2013 71575 CMP 12/12/2013 87803 LIPID PANEL 12/12 46129 SED/ESR RATE IN HOUSE 12/12/2013 14510 TSH 12/12/2013 68099 PARING SKIN LESIONS 2-4 (BENIGN) 12/26/2013 [facility] J2550 PHENERGAN INJECTION UP TO 50 MG 07/14/2014 94637 THERAPUTIC INJ SQ/IM 07/14/2014 J1885 TORADOL INJ 07/14 J0696 ROCEPHIN INJ 250 MG 07/14/2014 21651 HIDA SCAN [address] ANGIO, PELVIS 01/29/[address] ANGIO, ABDOMEN 01/29/2015 82419 PSYCH DIAGNOSTIC EVALUATION 02/23/2015 Results Encounters ACCT No. Visit Date/Time Discharge Status Pt. Type Provider Facility Loc./Unit Complaint [id number] 01/29/2015 09:41:00 2014 23:59:59 CLS Outpatient MELANI PALACIOS [facility] RAD CHRONIC VASUCLAR INSUFFICIENCY OF INTESTINE [id number] 08/03/2014 09:35:00 2013 12:16:00 DIS Emergency EDA BARTON DO [facility] ER ABD SWELLING [id number] 07/29/2014 12:18:00 2013 23:59:59 CLS Outpatient MELANI PALACIOS [facility] CARD N/V,ABD PAIN [id number] 07/15/2014 07:57:00 2013 23:59:59 CLS Outpatient WALKER BOOTHE [facility] RAD RUQ PAIN [id number] 07/12/2014 10:08:00 2013 12:54:00 DIS Emergency WALKER BOOTHE [facility] ER ADB PAIN INSECT BITE [id number] 06/17/2014 11:56:00 2013 15:00:00 DIS Outpatient ARA SU DO [facility] SDC SMALL STOOLS;REFLUX [id number] 06/15/2014 13:41:00 2013 15:51:00 DIS Emergency WALKER BOOTHE [facility] ER BACK PAIN [id number] 06/11/2014 07:07:00 2013 23:59:59 CLS Outpatient ARA SU DO [facility] PREOP SMALL STOOLS;REFLUX [id number] 05/27/2014 12:02:00 2013 23:59:59 CLS Outpatient ARA SU DO [facility] SDC SMALL STOOLS;REFLUX [id number] 05/21/2014 08:17:00 2013 23:59:59 CLS Outpatient ARA SU DO [facility] PREOP SMALL STOOLS;REFLUX [id number] 12/09/2016 08:09:00 ACT Outpatient SYLWIA PAYTON DO [facility] RAD ABNORMAL MAMMO OF LEFT BREAST [id number] 11/24/2016 09:37:00 ACT Outpatient SYLWIA PAYTON DO [facility] RAD CHRONIC FEMALE PELVIC PAIN, HX OF ENDOMETRIOSIS [id number] 10/10/2016 10:20:00 ACT Outpatient MELANI PALACIOS [facility] RAD LOW BACK PAIN [id number] 12/28/2014 21:50:00 Document Registration [id number] 11/11/2011 09:58:00 Document Registration [id number] 09/28/2010 00:53:00 Document Registration
--- NOTE | 2016-12-09 08:43 | Diagnostic Imaging Report ---
Left breast diagnostic mammogram. CAD is utilized. No prior studies are available for comparison. FINDINGS: There is a cluster of microcalcifications with no significant heterogeneity seen in the posterior medial aspect of the left breast. One of the calcifications appears to have central lucency, a feature that is often seen with benign calcifications. There is no associated mass identified. IMPRESSION: Medial posterior left breast calcifications with minimal heterogeneity are favored to be benign in etiology. Ultrasound evaluation is pending. ACR BI-RADS Category 0: Incomplete. (Needs additional imaging evaluation). Result letter will be mailed to the patient. Note: At least 10% of breast cancer is not imaged by mammography. Dictated by: Dictated on workstation # [id number]
--- NOTE | 2016-12-09 18:47 | Diagnostic Imaging Report ---
EXAMINATION: Left breast ultrasound. INDICATION: Calcifications in the medial aspect of the left breast. FINDINGS: The medial aspect of the left breast was scanned with no underlying abnormality seen. IMPRESSION: No correlating abnormality to the calcifications seen on mammography which are likely benign. Six months followup left breast mammogram is recommended to ensure stability. ACR BI-RADS Category 3: Probably benign findings. Result letter will be mailed to the patient. Note: At least 10% of breast cancer is not imaged by mammography. Dictated by: Dictated on workstation # [id number]
== END ==
LOC: RAD 08:09
PROVIDERS: ATTEND Obstetrics & Gynecology
DX: R92.8 Other abnormal and inconclusive findings on diagnostic imaging of breast (principal); R92.1 Mammographic calcification found on diagnostic imaging of breast
CPT/HCPCS: 76642

== ENCOUNTER 2017-10-13 08:50 | Emergency (ER) | payer SELFPAY ==
[~2017-10-13] VITALS: Ht 160 cm; Wt 90.7 kg
[2017-10-13 08:55] VITALS: BP 142/94
--- OUTSIDE RECORDS SUMMARY | 2017-10-13 08:57 | XMS REPORT ---
Author Author MELANI PALACIOS Organization [employer] Address Unknown Phone Unavailable Care Team Providers Care Loading Machine Adjuster Name Role Phone MELANI PALACIOS CP Unavailable Allergies No Known Allergies Problems Problem Type Condition Code Onset Dates Condition Status Problem Abdominal pain, unspecified site 789.00 Active Problem Lipoma of other specified sites 214.8 Active Problem Cellulitis and abscess of trunk 682.2 Active Problem Generalized anxiety disorder F41.1 Active Problem Unspecified diseases of conjunctiva due to viruses 077.99 Active Problem Major depressive disorder, recurrent episode, moderate F33.1 Active Problem Abnormal weight gain 783.1 Active Problem Abdominal pain, epigastric 789.06 Active Problem Acute sinusitis, unspecified 461.9 Active Problem Other malaise and fatigue 780.79 Active Problem Screening for malignant neoplasm of the cervix V76.2 Active Problem Unspecified breast screening V76.10 Active Problem Esophageal reflux 530.81 Active Problem Other symptoms involving digestive system 787.99 Active Problem Abdominal pain, right lower quadrant 789.03 Active Problem Corns and callosities 700 Active Problem Personal history of tobacco use, presenting hazards to health V15.82 Active Problem Chronic vascular insufficiency of intestine 557.1 Active Problem Nausea with vomiting 787.01 Active Medications Medication Code System Code Instructions Start Date End Date Status Dosage Ativan NDC [address]-73 0.5 MG Dec 22, 2014 1 tablet by Oral route 3 times per day PRN tramadol NDC 0 50 mg 2 times a day January 01, 2015 take 2 tablet by Oral route Results No Known Results Summary Purpose [employer] Submission
--- OUTSIDE RECORDS SUMMARY | 2017-10-13 08:57 | XMS REPORT ---
Author Author MELANI PALACIOS [facility] Address [address] [place] [address] Care Team Providers Care Educational Psychology Teacher Name Role Phone MELANI PALACIOS Unavailable PROBLEMS Type Condition ICD9-CM Code CTC35-DI Code Onset Dates Condition Status SNOMED Code Problem Major depressive disorder, recurrent episode, moderate F33.1 Active 800818432 Problem Chronic pain G89.29 Active 47384884 Problem Hyperinsulinemia E16.1 Active 63784197 Problem Gastroesophageal reflux disease, esophagitis presence not specified K21.9 Active 505487826 Problem Generalized anxiety disorder F41.1 Active 23844562 Problem COPD (chronic obstructive pulmonary disease) J44.9 Active 05875620 Problem Low back pain M54.5 Active 273240049 ALLERGIES No Known Allergies SOCIAL HISTORY Never Assessed PLAN OF CARE Activity Details Follow Up prn Reason: VITAL SIGNS Height 63 in 2016-11-30 Weight 202.9 lbs 2016-11-30 Temperature 98.2 degrees Fahrenheit 2016-11-30 Heart Rate 80 bpm 2016-11-30 Respiratory Rate 20 2016-11-30 BMI 35.94 kg/m2 2016-11-30 Blood pressure systolic 132 mmHg 2016-11-30 Blood pressure diastolic 88 mmHg 2016-11-30 MEDICATIONS Medication Instructions Dosage Frequency Start Date End Date Duration Status Spiriva Respimat 1.25 MCG/ACT Inhalation Once a day 2 puffs 24h Dec, Mar, 90 days Active Aspirin 325 MG Orally Once a day 1 tablet 24h Sep, 30 days Active Nexium 40 mg Orally Once a day 1 capsule 24h 30 days Active Ativan 0.5 MG Orally 3 times a day 1 tablet as needed 8h Nov, 28 days Active Levaquin 500 MG Orally Once a day 1 tablet 24h Nov, Nov, 10 day(s) Active Cymbalta 60 mg Orally Once a day 1 capsule 24h 30 days Active Loratadine 10 MG TAKE ONE TABLET BY MOUTH ONCE DAILY 30 Active tramadol 50 mg by oral route 2 times a day 2 tablets 12h 05 Dec, 2014 28 days Active Amlodipine Besylate 10 mg Orally Once a day 1 tablet 24h 15 Sep, 2015 30 days Active Accuretic 20-25 MG TAKE ONE TABLET BY MOUTH ONCE DAILY 90 Active Promethazine-Codeine 6.25-10 MG/5ML Orally every 6 hrs 5 -10 ml as needed 6h Nov, Nov, 10 days Active RESULTS Name Result Date Reference Range INFLUENZA A & B (IN HOUSE) 2016-11-30 INFLUENZA A negative INFLUENZA B negative Control + Lot # [id number] Exp date 10/21/2017 A1C 2016-11-30 Hemoglobin A1c 6.0 4.8-5.6 INSULIN LEVEL 2016-11-30 Insulin 26.7 2.6-24.9 PROCEDURES Procedure Date Ordered Result Body Site INFLUENZA ASSAY W/OPTIC Nov 30, 2016 ASSAY OF INSULIN Nov 30, 2016 VENIPUNCT, ROUTINE* Nov 30, 2016 GLYCATED HEMOGLOBIN TEST Nov 30, 2016 IMMUNIZATIONS No Known Immunizations MEDICAL (GENERAL) HISTORY Type Description Date Medical History hypertension Medical History depression Medical History anxiety Medical History chronic back pain Surgical History partial hysterectomy Surgical History DNC Surgical History heart cath Hospitalization History surgeries Hospitalization History stomach problems Hospitalization History [facility] for neck pain 12/15
--- OUTSIDE RECORDS SUMMARY | 2017-10-13 08:57 | XMS REPORT ---
Author Author MELANI PALACIOS [facility] [employer] Address Unknown Phone Unavailable Care Team Providers Care Machinist Mate Name Role Phone MELANI PALACIOS CP Unavailable Allergies, Adverse Reactions, Alerts Substance Reaction Event Type N.K.D.A. Info Not Available Non Drug Allergy Problems Problem Type Condition Code Onset Dates Condition Status Problem Personal history of tobacco use, presenting hazards to health V15.82 Active Problem Abdominal pain, unspecified site 789.00 Active Problem Nausea with vomiting 787.01 Active Problem Acute sinusitis, unspecified 461.9 Active Problem Other malaise and fatigue 780.79 Active Problem Unspecified diseases of conjunctiva due to viruses 077.99 Active Problem Lipoma of other specified sites 214.8 Active Problem Cellulitis and abscess of trunk 682.2 Active Problem Abnormal weight gain 783.1 Active Problem Abdominal pain, epigastric 789.06 Active Assessment Essential hypertension I10 Active Problem Esophageal reflux 530.81 Active Problem Corns and callosities 700 Active Problem Chronic vascular insufficiency of intestine 557.1 Active Problem Screening for malignant neoplasm of the cervix V76.2 Active Problem Other symptoms involving digestive system 787.99 Active Problem Unspecified breast screening V76.10 Active Problem Abdominal pain, right lower quadrant 789.03 Active Medications Medication Code System Code Instructions Start Date End Date Status Dosage Accuretic [facility] 70456939907 20-25 MG TAKE ONE TABLET BY MOUTH DAILY Nexium [facility] 91454219019 40 MG TAKE ONE CAPSULE BY MOUTH ONCE DAILY Cymbalta [facility] 14627851328 60 MG TAKE ONE CAPSULE BY MOUTH DAILY Cymbalta [facility] [address]-59 30 MG Orally Once a day 1 capsule tramadol [facility] 0 50 mg 2 times a day January 01, 2015 take 2 tablet by Oral route Ativan [facility] [address]-44 0.5 MG Dec 22, 2014 1 tablet by Oral route 3 times per day PRN Amlodipine Besylate [facility] [address]-92 10 MG Orally Once a day Oct 13, 2015 1 tablet Aspirin [facility] [address]-15 325 mg Oct 08, 2013 take 1 tablet (325 mg) by oral route once daily Procedures Procedure Coding System Code Date Office Visit, Est Pt., Level 3 CPT-4 27126 Oct 13, 2015 Vital Signs Date/Time: Oct 13, 2015 Temperature 96.6 F Weight 203.6 lbs Height 63 in BMI 36.06 Index Blood Pressure Diastolic 90 mmHg Blood Pressure Systolic 130 mmHg Cardiac Monitoring Heart Rate 78 bpm Results No Known Results Summary Purpose [employer] Submission
--- OUTSIDE RECORDS SUMMARY | 2017-10-13 08:57 | XMS REPORT ---
Author Author MELANI PALACIOS Organization [employer] Address Unknown Phone Unavailable Care Team Providers Care Engineer Conductor Name Role Phone MELANI PALACIOS CP Unavailable Allergies No Known Allergies Problems Problem Type Condition Code Onset Dates Condition Status Problem Abdominal pain, unspecified site 789.00 Active Problem Lipoma of other specified sites 214.8 Active Problem Cellulitis and abscess of trunk 682.2 Active Problem Generalized anxiety disorder 300.02 Active Problem Unspecified diseases of conjunctiva due to viruses 077.99 Active Problem Depression, major, recurrent, moderate 296.32 Active Problem Abnormal weight gain 783.1 Active [...] Instructions Start Date End Date Status Dosage tramadol NDC 0 50 mg 2 times a day January 01, 2015 take 2 tablet by Oral route Ativan NDC [address]-03 0.5 MG Dec 22, 2014 1 tablet by Oral route 3 times per day PRN Results No Known Results Summary Purpose [employer] Submission
--- OUTSIDE RECORDS SUMMARY | 2017-10-13 08:57 | XMS REPORT ---
Author Author MELANI PALACIOS Organization [employer] Address Unknown Phone Unavailable Care Team Providers Care Olap Developer Name Role Phone MELANI PALACIOS CP Unavailable Allergies No Known Allergies Problems Problem Type Condition Code Onset Dates Condition Status Problem Low back pain M54.5 Active Problem Gastroesophageal reflux disease, esophagitis presence not specified K21.9 Active Problem COPD (chronic obstructive pulmonary disease) J44.9 Active Problem Major depressive disorder, recurrent episode, moderate F33.1 Active Problem Generalized anxiety disorder F41.1 Active Medications Medication Code System Code Instructions Start Date End Date Status Dosage Ativan NDC [address]-91 0.5 MG Orally 3 times a day Dec 22, 2014 1 tablet as needed tramadol NDC 0 50 mg by oral route 2 times a day January 01, 2015 2 tablets Results No Known Results Summary Purpose [employer] Submission
--- OUTSIDE RECORDS SUMMARY | 2017-10-13 08:57 | XMS REPORT ---
Author Author GISELA JOLLEY [facility] Address [address] [place] [address] Care Team Providers Care Manager Financial Reporting Name Role Phone GISELA JOLLEY Unavailable PROBLEMS Type Condition ICD9-CM Code [id number] Code Onset Dates Condition Status SNOMED Code Problem Major depressive disorder, recurrent episode, moderate F33.1 Active 756308689 Problem Chronic pain G89.29 Active 86480016 Problem Hyperinsulinemia E16.1 Active 05811046 Problem Gastroesophageal reflux disease, esophagitis presence not specified K21.9 Active 499118721 Problem Generalized anxiety disorder F41.1 Active 10928607 Problem COPD (chronic obstructive pulmonary disease) J44.9 Active 50149211 Problem Low back pain M54.5 Active [id number] ALLERGIES No Known Allergies SOCIAL HISTORY Never Assessed PLAN OF CARE Activity Details Follow Up 10 days Reason:staple removal VITAL SIGNS Height 63 in 2016-12-27 Weight 205 lbs 2016-12-27 Temperature 98.1 degrees Fahrenheit 2016-12-27 Heart Rate 78 bpm 2016-12-27 Respiratory Rate 20 2016-12-27 BMI 36.31 kg/m2 2016-12-27 Blood pressure systolic 114 mmHg 2016-12-27 Blood pressure diastolic 68 mmHg 2016-12-27 MEDICATIONS Medication Instructions Dosage Frequency Start Date End Date Duration Status Accuretic 20-25 MG TAKE ONE TABLET BY MOUTH ONCE DAILY 90 Active Loratadine 10 MG TAKE ONE TABLET BY MOUTH ONCE DAILY 30 Active Amlodipine Besylate 10 mg Orally Once a day 1 tablet 24h Sep, 30 days Active Ultram 50 MG Orally 2 times a day 2 tablets 12h Nov, 28 days Active Aspirin 325 MG Orally Once a day 1 tablet 24h Sep, 30 days Active Spiriva Respimat 1.25 MCG/ACT Inhalation Once a day 2 puffs 24h Dec, Mar, 90 days Active Ativan 0.5 MG Orally 3 times a day 1 tablet as needed 8h Nov, 28 days Active Nexium 40 MG TAKE ONE CAPSULE BY MOUTH ONCE DAILY 30 Active Cymbalta 60 mg Orally Once a day 1 capsule 24h 30 days Active RESULTS No Results PROCEDURES Procedure Date Ordered Result Body Site EXC BENIGN LEISON 1.1-2 cm (specify location) 2016-12-27 N/A EXC TR-EXT B9 RENE 1.1-2 CM Dec 27, 2016 IMMUNIZATIONS No Known Immunizations MEDICAL (GENERAL) HISTORY Type Description Date Medical History hypertension Medical History depression Medical History anxiety Medical History chronic back pain Surgical History partial hysterectomy Surgical History DNC Surgical History heart cath Hospitalization History surgeries Hospitalization History stomach problems Hospitalization History [facility] for neck pain 12/15
--- OUTSIDE RECORDS SUMMARY | 2017-10-13 08:58 | XMS REPORT ---
Author Author MELANI PALACIOS [facility] Address [address] [place] [address] Care Team Providers Care Senior Advocate Name Role Phone MELANI PALACIOS Unavailable PROBLEMS Type Condition ICD9-CM Code [id number] Code Onset Dates Condition Status SNOMED Code Problem Major depressive disorder, recurrent episode, moderate F33.1 Active 631165634 Problem Chronic pain G89.29 Active 60387037 Problem Hyperinsulinemia E16.1 Active 17006973 Problem Gastroesophageal reflux disease, esophagitis presence not specified K21.9 Active 275487550 Problem Generalized anxiety disorder F41.1 Active 20383401 Problem COPD (chronic obstructive pulmonary disease) J44.9 Active 95106034 Problem Low back pain M54.5 Active 158562041 ALLERGIES No Known Allergies SOCIAL HISTORY Never Assessed PLAN OF CARE Activity Details Follow Up 3 Months Reason:pain mgmt VITAL SIGNS Height 63 in 2017-01-18 Weight 208.9 lbs 2017-01-18 Temperature 98.7 degrees Fahrenheit 2017-01-18 Heart Rate 80 bpm 2017-01-18 Respiratory Rate 18 2017-01-18 BMI 37.00 kg/m2 2017-01-18 Blood pressure systolic 102 mmHg 2017-01-18 Blood pressure diastolic 76 mmHg 2017-01-18 MEDICATIONS Medication Instructions Dosage Frequency Start Date End Date Duration Status Spiriva Respimat 1.25 MCG/ACT Inhalation Once a day 2 puffs 24h Dec, Mar, 90 days Active Ultram 50 MG Orally 2 times a day 2 tablets 12h Nov, 28 days Active Nexium 40 MG TAKE ONE CAPSULE BY MOUTH ONCE DAILY 30 Active Loratadine 10 MG TAKE ONE TABLET BY MOUTH ONCE DAILY 30 Active Ativan 0.5 MG Orally 3 times a day 1 tablet as needed 8h Nov, 28 days Active Aspirin 325 MG Orally Once a day 1 tablet 24h Sep, 30 days Active Accuretic 20-25 MG TAKE ONE TABLET BY MOUTH ONCE DAILY 90 Active Cymbalta 60 mg Orally Once a day 1 capsule 24h 30 days Active Amlodipine Besylate 10 mg Orally Once a day 1 tablet 24h Sep, 30 days Active RESULTS No Results PROCEDURES No Known procedures IMMUNIZATIONS No Known Immunizations MEDICAL (GENERAL) HISTORY Type Description Date Medical History hypertension Medical History depression Medical History anxiety Medical History chronic back pain Surgical History partial hysterectomy Surgical History DNC Surgical History heart cath Hospitalization History surgeries Hospitalization History stomach problems Hospitalization History [facility] for neck pain 12/15
--- OUTSIDE RECORDS SUMMARY | 2017-10-13 08:58 | XMS REPORT ---
Author Author MELANI PALACIOS Organization [employer] Address Unknown Phone Unavailable Care Team Providers Care Pulmonologist Intensivist Name Role Phone MELANI PALACIOS CP Unavailable [...] 2 tablet by Oral route Ativan NDC [address]-85 0.5 MG Dec 22, 2014 1 tablet by Oral route 3 times per day PRN Results No Known Results Summary Purpose [employer] Submission
--- OUTSIDE RECORDS SUMMARY | 2017-10-13 08:58 | XMS REPORT ---
Author Author MELANI PALACIOS Organization [employer] Address Unknown Phone Unavailable Care Team Providers Care Bilingual Manager Name Role Phone MELANI PALACIOS CP Unavailable Allergies No Known Allergies Problems Problem Type Condition Code Onset Dates Condition Status Problem Low back pain M54.5 Active Problem Gastroesophageal reflux disease, esophagitis presence not specified K21.9 Active Problem COPD (chronic obstructive pulmonary disease) J44.9 Active Problem Major depressive disorder, recurrent episode, moderate F33.1 Active Problem Generalized anxiety disorder F41.1 Active Medications No Known Medications Results No Known Results Summary Purpose [employer] Submission
--- OUTSIDE RECORDS SUMMARY | 2017-10-13 08:58 | XMS REPORT ---
Author Author SAM MEEK Organization [employer] Address Unknown Phone Unavailable Care Team Providers Care Rim Fire Charger Operator Name Role Phone SAM MEEK CP Unavailable Allergies No Known Allergies Problems Problem Type Condition Code Onset Dates Condition Status Problem Abdominal pain, unspecified site 789.00 Active Problem Lipoma of other specified sites 214.8 Active Problem Cellulitis and abscess of trunk 682.2 Active Problem Generalized anxiety disorder F41.1 Active Assessment Generalized anxiety disorder F41.1 Active Problem Unspecified [...] Active Problem Unspecified breast screening V76.10 Active Assessment Major depressive disorder, recurrent episode, moderate F33.1 Active Problem Esophageal reflux 530.81 Active Problem Other symptoms involving digestive system 787.99 Active Problem Abdominal pain, right lower quadrant 789.03 Active Problem Corns and callosities 700 Active Problem Personal history of tobacco use, presenting hazards to health V15.82 Active Problem 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
--- OUTSIDE RECORDS SUMMARY | 2017-10-13 08:58 | XMS REPORT ---
Author Author MELANI PALACIOS Organization [employer] Address Unknown Phone Unavailable Care Team Providers Care Custom Van Converter Name Role Phone MELANI PALACIOS CP Unavailable Allergies No Known Allergies Problems Problem Type Condition Code Onset Dates Condition Status Problem Generalized anxiety disorder F41.1 Active Problem Esophageal reflux 530.81 Active Problem Major depressive disorder, recurrent episode, moderate F33.1 Active Assessment COPD (chronic obstructive pulmonary disease) J44.9 Active Medications Medication Code System Code Instructions Start Date End Date Status Dosage Spiriva Respimat [facility] [address]-01 1.25 MCG/ACT Inhalation Once a day February 10, 2016 May 05, 2017 2 puffs Results No Known Results Summary Purpose [employer] Submission
--- OUTSIDE RECORDS SUMMARY | 2017-10-13 08:58 | XMS REPORT ---
Author Author MELANI PALACIOS Organization [employer] Address Unknown Phone Unavailable Care Team Providers Care Sap Basis Administrator Name Role Phone MELANI PALACIOS CP Unavailable [...] Date End Date Status Dosage Ativan NDC [address]-84 0.5 MG Dec 22, 2014 1 tablet by Oral route 3 times per day PRN tramadol NDC 0 50 mg 2 times a day January 01, 2015 take 2 tablet by Oral route Results No Known Results Summary Purpose [employer]Works Submission
--- OUTSIDE RECORDS SUMMARY | 2017-10-13 08:58 | XMS REPORT ---
Author Author MELANI PALACIOS [facility] e[employer] Address Unknown Phone Unavailable Care Team Providers Care Research Geneticist Name Role Phone MELANI PALACIOS CP Unavailable Allergies, Adverse Reactions, Alerts Substance Reaction Event Type N.K.D.A. Info Not Available Non Drug Allergy Problems Problem Type Condition Code Onset Dates Condition Status Problem Abdominal pain, unspecified site 789.00 Active Problem Lipoma of other specified sites 214.8 Active Problem Cellulitis and abscess of trunk 682.2 Active Problem Generalized anxiety disorder 300.02 Active Assessment Abdominal pain, unspecified abdominal location R10.9 Active Problem Unspecified diseases of conjunctiva due to viruses 077.99 Active Problem Depression, major, recurrent, moderate 296.32 Active Problem Abnormal weight gain 783.1 Active Problem Abdominal pain, epigastric 789.06 Active Problem Acute sinusitis, unspecified 461.9 Active Problem Other malaise and fatigue 780.79 Active Problem Screening for malignant neoplasm of the cervix V76.2 Active Problem Unspecified breast screening V76.10 Active Assessment Chronic pain G89.29 Active Problem Esophageal reflux 530.81 Active Problem [...] Status Dosage tramadol NDC 0 50 mg LAST REFILL PT NEEDS AN APPT FOR FURTHER REFILLS January 01, 2015 take 1 tablet by Oral route every 8 hours as needed PRN pain Nexium [facility] [id number] 40 MG TAKE ONE CAPSULE BY MOUTH ONCE DAILY Cymbalta [facility] [id number] 60 MG TAKE ONE CAPSULE BY MOUTH DAILY Aspirin [facility] [address]-54 325 mg Oct 08, 2013 take 1 tablet (325 mg) by oral route once daily Accuretic [facility] [id number] 20-25 MG TAKE ONE TABLET BY MOUTH DAILY Ativan [facility] [address]-16 0.5 MG LAST REFILL PT MUST HAVE AN APPT FOR FURTHER REFILLS Dec 22, 2014 1 tablet by Oral route 3 times per day PRN Procedures Procedure Coding System Code Date Office Visit, Est Pt., Level 3 CPT-4 97482 Sep 08, 2015 No Charge CPT-4 34414 Sep 08, 2015 Vital Signs Date/Time: Sep 08, 2015 Temperature 98.3 F Weight 201.4 lbs Height 63 in BMI 35.67 Index Blood Pressure Diastolic 90 mmHg Blood Pressure Systolic 128 mmHg Cardiac Monitoring Heart Rate 72 bpm Results Name Result Date Reference Range Unit Abnormality Flag [employer] Summary Purpose [employer]Works Submission
--- OUTSIDE RECORDS SUMMARY | 2017-10-13 08:58 | XMS REPORT ---
Author Author MELANI PALACIOS Organization [employer] Address Unknown Phone Unavailable Care Team Providers Care Dictaphone Technician Name Role Phone MELANI PALACIOS CP Unavailable [...] Start Date End Date Status Dosage Ativan [facility] [address]-48 0.5 MG Dec 22, 2014 1 tablet by Oral route 3 times per day PRN Results No Known Results Summary Purpose [employer]ClinicalWorks Submission
--- OUTSIDE RECORDS SUMMARY | 2017-10-13 08:58 | XMS REPORT ---
Author Author MELANI PALACIOS Organization [employer] Address Unknown Phone Unavailable Care Team Providers Care Computational Theory Scientist Name Role Phone MELANI PALACIOS CP Unavailable Allergies No Known Allergies Problems Problem Type Condition Code Onset Dates Condition Status Problem Low back pain M54.5 Active Problem Gastroesophageal reflux disease, esophagitis presence not specified K21.9 Active Problem COPD (chronic obstructive pulmonary disease) J44.9 Active Assessment Generalized anxiety disorder F41.1 Active Assessment Low back pain M54.5 Active Problem Major depressive disorder, recurrent episode, moderate F33.1 Active Problem Generalized anxiety disorder F41.1 Active Medications Medication Code System Code Instructions Start Date End Date Status Dosage Ativan DCC [address]-92 0.5 MG Orally 3 times a day Dec 22, 2014 1 tablet as needed tramadol NDC 0 50 mg by oral route 2 times a day January 01, 2015 2 tablets Results No Known Results Summary Purpose [employer] Submission
--- OUTSIDE RECORDS SUMMARY | 2017-10-13 08:58 | XMS REPORT ---
Author Author MELANI PALACIOS Organization [employer] Address Unknown Phone Unavailable Care Team Providers Care In Store Marketing Representative Name Role Phone MELANI PALACIOS CP Unavailable [...] Start Date End Date Status Dosage Ativan [facility] [address]-54 0.5 MG Dec 22, 2014 1 tablet by Oral route 3 times per day PRN tramadol NDC 0 50 mg 2 times a day January 01, 2015 take 2 tablet by Oral route Results No Known Results Summary Purpose [employer]ClinicalWorks Submission
--- OUTSIDE RECORDS SUMMARY | 2017-10-13 08:58 | XMS REPORT ---
Author Author MELANI PALACIOS [facility] Address [address] [place] [address] Care Team Providers Care Hair Boiler Operator Name Role Phone MELANI PALACIOS Unavailable PROBLEMS Type Condition ICD9-CM Code [id number] Code Onset Dates Condition Status SNOMED Code Problem Major depressive disorder, recurrent episode, moderate F33.1 Active 426072761 Problem Chronic pain G89.29 Active 30051336 Problem Hyperinsulinemia E16.1 Active 53808454 Problem Gastroesophageal reflux disease, esophagitis presence not specified K21.9 Active 777140311 Problem Generalized anxiety disorder F41.1 Active 34521715 Problem COPD (chronic obstructive pulmonary disease) J44.9 Active 71213465 Problem Low back pain M54.5 Active 682957411 ALLERGIES No Information SOCIAL HISTORY Never Assessed PLAN OF CARE VITAL SIGNS MEDICATIONS Unknown Medications RESULTS Name Result Date Reference Range CBC 2017-01-20 WBC 11.0 3.4-10.8 RBC 4.87 3.77-5.28 Hemoglobin 14.8 11.1-15.9 Hematocrit 44.2 34.0-46.6 MCV 91 79-97 MCH 30.4 26.6-33.0 MCHC 33.5 31.5-35.7 RDW 13.8 12.3-15.4 Platelets 331 150-379 Neutrophils 60 Lymphs 29 Monocytes 6 Eos 4 Basos 1 Neutrophils (Absolute) 6.7 1.4-7.0 Lymphs (Absolute) 3.2 0.7-3.1 Monocytes(Absolute) 0.7 0.1-0.9 Eos (Absolute) 0.4 0.0-0.4 Baso (Absolute) 0.1 0.0-0.2 Immature Granulocytes 0 Immature Grans (Abs) 0.0 0.0-0.1 LIPID PANEL 2017-01-20 Cholesterol, Total 211 100-199 Triglycerides 100 0-149 HDL Cholesterol 33 >39 VLDL Cholesterol Edwar 20 5-40 LDL Cholesterol Calc 158 0-99 Comment: [facility] 2017-01-20 Glucose, Serum 99 65-99 BUN 13 6-24 Creatinine, Serum 0.63 0.57-1.00 eGFR If NonAfricn Am 106 >59 eGFR If Africn Am 123 >59 BUN/Creatinine Ratio 21 9-23 Sodium, Serum 140 134-144 Potassium, Serum 4.3 3.5-5.2 Chloride, Serum 101 96-106 Carbon Dioxide, Total 24 18-29 Calcium, Serum 9.3 8.7-10.2 Protein, Total, Serum 6.6 6.0-8.5 Albumin, Serum 4.1 3.5-5.5 Globulin, Total 2.5 1.5-4.5 A/G Ratio 1.6 1.2-2.2 Bilirubin, Total <0.2 0.0-1.2 Alkaline Phosphatase, S 84 39-117 AST (SGOT) 17 0-40 ALT (SGPT) 17 0-32 PROCEDURES Procedure Date Ordered Result Body Site COMPLETE CBC W/AUTO DIFF WBC January 20, 2017 LIPID PANEL January 20, 2017 VENIPUNCT, ROUTINE* January 20, 2017 COMPREHEN METABOLIC PANEL January 20, 2017 IMMUNIZATIONS No Known Immunizations MEDICAL (GENERAL) HISTORY Type Description Date Medical History hypertension Medical History depression Medical History anxiety Medical History chronic back pain Surgical History partial hysterectomy Surgical History DNC Surgical History heart cath Hospitalization History surgeries Hospitalization History stomach problems Hospitalization History [facility] for neck pain 12/15
--- OUTSIDE RECORDS SUMMARY | 2017-10-13 08:58 | XMS REPORT ---
Author Author AMPARO PARDO [facility] [employer] Address Unknown Phone Unavailable Care Team Providers Care Cage Manager Name Role Phone AMPARO PARDO Unavailable Allergies No Known Allergies Problems Problem Type Condition Code Onset Dates Condition Status Problem Generalized anxiety disorder F41.1 Active Problem Esophageal reflux 530.81 Active Problem Major depressive disorder, recurrent episode, moderate F33.1 Active Assessment BMI 36.0-36.9,adult Z68.36 Active Medications No Known Medications Vital Signs Date/Time: February 24, 2016 Temperature 98.0 F Weight 203.8 lbs Height 63 in BMI 36.10 Index Blood Pressure Diastolic 82 mmHg Blood Pressure Systolic 126 mmHg Cardiac Monitoring Heart Rate 78 bpm Results No Known Results Summary Purpose [employer]ClinicalWorks Submission
--- OUTSIDE RECORDS SUMMARY | 2017-10-13 08:59 | XMS REPORT ---
Author Author MELANI PALACIOS Organization [employer] Address Unknown Phone Unavailable Care Team Providers Care Theatrical Performer Name Role Phone MELANI PALACIOS CP Unavailable [...] every 8 hours as needed PRN pain Ativan NDC [address]-51 0.5 MG LAST REFILL PT MUST HAVE AN APPT FOR FURTHER REFILLS Dec 22, 2014 1 tablet by Oral route 3 times per day PRN Results No Known Results Summary Purpose [employer]ClinicalWorks Submission
--- OUTSIDE RECORDS SUMMARY | 2017-10-13 08:59 | XMS REPORT ---
Author Author MELANI PALACIOS Organization [employer] Address Unknown Phone Unavailable Care Team Providers Care Cannon Pinion Adjuster Name Role Phone MELANI PALACIOS CP Unavailable Allergies No Known Allergies Problems Problem Type Condition Code Onset Dates Condition Status Problem Generalized anxiety disorder F41.1 Active Problem Esophageal reflux 530.81 Active Problem Major depressive disorder, recurrent episode, moderate F33.1 Active Medications Medication Code System Code Instructions Start Date End Date Status Dosage Ativan NDC [address]-29 0.5 MG Orally 3 times a day Dec 22, 2014 1 tablet as needed tramadol NDC 0 50 mg by oral route 2 times a day January 01, 2015 2 tablets Results No Known Results Summary Purpose [employer]ClinicalWorks Submission
--- OUTSIDE RECORDS SUMMARY | 2017-10-13 08:59 | XMS REPORT ---
Author Author MELANI PALACIOS [facility] Address [address] [place] [address] Care Team Providers Care Recreation Therapy Aide Name Role Phone MELANI PALACIOS Unavailable PROBLEMS Type Condition ICD9-CM Code [id number] Code Onset Dates Condition Status SNOMED Code Problem Major depressive disorder, recurrent episode, moderate F33.1 Active 384471453 Problem Chronic pain G89.29 Active 94069067 Problem Hyperinsulinemia E16.1 Active 33868358 Problem Gastroesophageal reflux disease, esophagitis presence not specified K21.9 Active 404339854 Problem Generalized anxiety disorder F41.1 Active 21302105 Problem COPD (chronic obstructive pulmonary disease) J44.9 Active 50547083 Problem Low back pain M54.5 Active 946032358 ALLERGIES No Known Allergies SOCIAL HISTORY Never Assessed PLAN OF CARE Activity Details Follow Up 4 Weeks Reason:tobacco abuse VITAL SIGNS Height 63 in 2016-12-15 Weight 39.68 lbs 2016-12-15 Temperature 98.1 degrees Fahrenheit 2016-12-15 Heart Rate 82 bpm 2016-12-15 Respiratory Rate 18 2016-12-15 BMI 7.03 kg/m2 2016-12-15 Blood pressure systolic 130 mmHg 2016-12-15 Blood pressure diastolic 90 mmHg 2016-12-15 MEDICATIONS Medication Instructions Dosage Frequency Start Date End Date Duration Status Loratadine 10 MG TAKE ONE TABLET BY MOUTH ONCE DAILY 30 Active Spiriva Respimat 1.25 MCG/ACT Inhalation Once a day 2 puffs 24h Dec, Mar, 90 days Active Aspirin 325 MG Orally Once a day 1 tablet 24h Sep, 30 days Active Ultram 50 MG Orally 2 times a day 2 tablets 12h Nov, 28 days Active Wellbutrin SR 150 MG Orally Twice a day 1 tablet 12h Nov, 30 day(s) Active Nexium 40 mg Orally Once a day 1 capsule 24h 30 days Active Levaquin 500 MG Orally Once a day 1 tablet 24h Nov, Nov, 10 day(s) Active Cymbalta 60 mg Orally Once a day 1 capsule 24h 30 days Active Amlodipine Besylate 10 mg Orally Once a day 1 tablet 24h Sep, 30 days Active Accuretic 20-25 MG TAKE ONE TABLET BY MOUTH ONCE DAILY 90 Active Ativan 0.5 MG Orally 3 times a day 1 tablet as needed 8h 23 Nov, 2014 28 days Active RESULTS No Results PROCEDURES No [...]
--- OUTSIDE RECORDS SUMMARY | 2017-10-13 08:59 | XMS REPORT ---
Author Author SAM MEEK Organization [employer] Address Unknown Phone Unavailable Care Team Providers Care Prepress Specialist Name Role Phone SAM MEEK CP Unavailable Allergies No Known Allergies Problems Problem Type Condition ICD-9 Code Onset Dates Condition Status Problem Abdominal pain, unspecified site 789.00 Active Problem Lipoma of other specified sites 214.8 Active Problem Cellulitis and abscess of trunk 682.2 Active Problem Generalized anxiety disorder 300.02 Active Assessment Generalized anxiety disorder 300.02 Active Problem Unspecified [...] Problem Unspecified breast screening V76.10 Active Assessment Depression, major, recurrent, moderate 296.32 Active Problem Esophageal reflux 530.81 Active Problem [...] patient &/family, 30 minutes, established patient CPT-4 71567 Jul 16, 2015 Results No Known Results Summary Purpose [employer]ClinicalWorks Submission
--- OUTSIDE RECORDS SUMMARY | 2017-10-13 08:59 | XMS REPORT ---
Author Author MELANI PALACIOS Organization [employer] Address Unknown Phone Unavailable Care Team Providers Care Fabrication Department Supervisor Name Role Phone MELANI PALACIOS CP Unavailable [...] Date End Date Status Dosage Ativan NDC [address]-67 0.5 MG Orally 3 times a day Dec 22, 2014 1 tablet as needed tramadol NDC 0 50 mg by oral route 2 times a day January 01, 2015 2 tablets Results No Known Results Summary Purpose [employer]ClinicalWorks Submission
--- OUTSIDE RECORDS SUMMARY | 2017-10-13 08:59 | XMS REPORT ---
Author Author AMPARO PARDO [facility] eClinical[employer] Address Unknown Phone Unavailable Care Team Providers Care Dope Pourer Name Role Phone AMPARO PARDO Unavailable Allergies No Known Allergies Problems Problem Type Condition Code Onset Dates Condition Status Problem Generalized anxiety disorder F41.1 Active Problem Esophageal reflux 530.81 Active Problem Major depressive disorder, recurrent episode, moderate F33.1 Active Assessment BMI 36.0-36.9,adult Z68.36 Active Medications No Known Medications Vital Signs Date/Time: February 19, 2016 Temperature 98.8 F Weight 206.9 lbs Height 63 in BMI 36.65 Index Blood Pressure Diastolic 82 mmHg Blood Pressure Systolic 124 mmHg Cardiac Monitoring Heart Rate 84 bpm Results No Known Results Summary Purpose eClinicalWorks Submission
--- OUTSIDE RECORDS SUMMARY | 2017-10-13 08:59 | XMS REPORT ---
Author Author MELANI PALACIOS Organization [employer] Address Unknown Phone Unavailable Care Team Providers Care Toe Laster Name Role Phone MELANI PALACIOS CP Unavailable [...] Status Dosage tramadol NDC 0 50 mg Needs an appt for further refills January 01, 2015 take 1 tablet by Oral route every 8 hours as needed PRN pain Results No Known Results Summary Purpose [employer]ClinicalWorks Submission
--- OUTSIDE RECORDS SUMMARY | 2017-10-13 08:59 | XMS REPORT ---
Author Author MELANI PALACIOS Organization [employer] Address Unknown Phone Unavailable Care Team Providers Care Sock And Stocking Ironer Name Role Phone MELANI PALACIOS CP Unavailable Allergies No Known Allergies Problems Problem Type Condition ICD-9 Code Onset Dates Condition Status Problem Nausea with vomiting 787.01 Active Problem Cellulitis and abscess of trunk 682.2 Active Problem Abdominal pain, unspecified site 789.00 Active Problem Acute sinusitis, unspecified 461.9 Active Problem Depressive disorder, not elsewhere classified 311 Active Problem Unspecified diseases of conjunctiva due to viruses 077.99 Active Problem Abdominal pain, epigastric 789.06 Active Problem Lipoma of other specified sites 214.8 Active Problem Other malaise and fatigue 780.79 Active Problem Abnormal weight gain 783.1 Active Problem Esophageal reflux 530.81 Active Problem Screening for malignant neoplasm of the cervix V76.2 Active Problem 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
--- OUTSIDE RECORDS SUMMARY | 2017-10-13 08:59 | XMS REPORT ---
Author Author MELANI PALACIOS [facility] Address [address] [place] [address] Care Team Providers Care Butane Compressor Operator Name Role Phone MELANI PALACIOS Unavailable PROBLEMS Type Condition ICD9-CM Code [id number] Code Onset Dates Condition Status SNOMED Code Problem Major depressive disorder, recurrent episode, moderate F33.1 Active 588763255 Problem Chronic pain G89.29 Active 28572602 Problem Hyperinsulinemia E16.1 Active 12450138 Problem Gastroesophageal reflux disease, esophagitis presence not specified K21.9 Active 052998862 Problem Generalized anxiety disorder F41.1 Active 61227583 Problem COPD (chronic obstructive pulmonary disease) J44.9 Active 31914483 Problem Low back pain M54.5 Active 265758256 ALLERGIES Unknown Allergies SOCIAL HISTORY No smoking Hx information available PLAN OF CARE VITAL SIGNS MEDICATIONS Medication Instructions Dosage Frequency Start Date End Date Duration Status Ativan 0.5 MG Orally 3 times a day 1 tablet as needed 8h 23 Nov, 2014 28 days Active tramadol 50 mg by oral route 2 times a day 2 tablets 12h Dec, 28 days Active RESULTS No Results PROCEDURES No Known procedures IMMUNIZATIONS No Known Immunizations
--- OUTSIDE RECORDS SUMMARY | 2017-10-13 08:59 | XMS REPORT ---
Author Author MELANI PALACIOS Organization [employer] Address Unknown Phone Unavailable Care Team Providers Care Cigar Patcher Name Role Phone MELANI PALACIOS CP Unavailable Allergies, Adverse Reactions, Alerts Substance Reaction Event Type N.K.D.A. 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 Active Problem Other symptoms involving digestive system 787.99 Active Problem Unspecified breast screening V76.10 Active Problem Abdominal pain, right lower quadrant 789.03 Active Problem Corns and callosities 700 Active Problem Personal history of tobacco use, presenting hazards to health V15.82 Active Medications Medication Code System Code Instructions Start Date End Date Status Dosage Cymbalta [facility] 31830933412 60 MG TAKE ONE CAPSULE BY MOUTH DAILY Ativan [facility] [address]-83 0.5 MG Dec 22, 2014 1 tablet by Oral route 3 times per day PRN PT NEEDS AN APPT FOR FURTHER REFILLS tramadol ND 0 50 mg January 01, 2015 take 1 tablet by Oral route every 8 hours as needed PRN pain Amoxicillin [facility] [address]-51 500 MG Orally Twice a day Jun 16, 2015 Jun 26, 2015 2 capsules Accuretic [facility] 44685242359 20-25 MG TAKE ONE TABLET BY MOUTH DAILY Aspirin [facility] [address]-67 325 mg Oct 08, 2013 take 1 tablet (325 mg) by oral route once daily Nexium [facility] 16565874359 40 MG TAKE ONE CAPSULE BY MOUTH ONCE DAILY Procedures Procedure Coding System Code Date Office Visit, Est Pt., Level 3 CPT-4 31343 Jun 16, 2015 Vital Signs Date/Time: Jun 16, 2015 Temperature 98.4 F Weight 196 lbs Height 63 in BMI 34.72 Index Blood Pressure Diastolic 80 mmHg Blood Pressure Systolic 120 mmHg Cardiac Monitoring Heart Rate 74 bpm Results No Known Results Summary Purpose [employer] Submission
--- OUTSIDE RECORDS SUMMARY | 2017-10-13 08:59 | XMS REPORT ---
Author Author MELANI PALACIOS Organization [employer] Address Unknown Phone Unavailable Care Team Providers Care Systems Technologist Name Role Phone MELANI PALACIOS CP Unavailable [...] Start Date End Date Status Dosage Ativan [facility] [address]-73 0.5 MG Dec 22, 2014 1 tablet by Oral route 3 times per day PRN REFILL EARLY D/T HOLIDAY Results No Known Results Summary Purpose [employer] Submission
--- OUTSIDE RECORDS SUMMARY | 2017-10-13 08:59 | XMS REPORT ---
Author Author MELANI PALACIOS Organization [facility] Address [address] [place] [address] Care Team Providers Care Tracer Clerk Name Role Phone MELANI PALACIOS Unavailable PROBLEMS Type Condition ICD9-CM Code VTH11-RB Code Onset Dates Condition Status SNOMED Code Problem COPD (chronic obstructive pulmonary disease) J44.9 Active 18348160 Problem Low back pain M54.5 Active 502906130 Problem Generalized anxiety disorder F41.1 Active 29811389 Assessment Allergic rhinitis J30.9 Jun, Active 54323818 Problem Gastroesophageal reflux disease, esophagitis presence not specified K21.9 Active 083058742 Problem Major depressive disorder, recurrent episode, moderate F33.1 Active 210927148 ALLERGIES No Known Allergies SOCIAL HISTORY No smoking Hx information available PLAN OF CARE VITAL SIGNS MEDICATIONS Medication Instructions Dosage Frequency Start Date End Date Duration Status Loratadine 10 mg Orally Once a day 1 tablet 24h Dec, 30 days Active Aspirin 325 MG Orally Once a day 1 tablet 24h 10 Sep, 2013 30 days Active Amlodipine Besylate 10 mg Orally Once a day 1 tablet 24h 15 Sep, 2015 30 days Active Ativan 0.5 MG Orally 3 times a day 1 tablet as needed 8h 23 Nov, 2014 28 days Active tramadol 50 mg by oral route 2 times a day 2 tablets 12h Dec, 28 days Active Cymbalta 60 mg Orally Once a day 1 capsule 24h 30 days Active Nexium 40 mg Orally Once a day 1 capsule 24h 30 days Active RESULTS No Results PROCEDURES No Known procedures IMMUNIZATIONS No Known Immunizations
--- OUTSIDE RECORDS SUMMARY | 2017-10-13 08:59 | XMS REPORT ---
Author Author MELANI PALACIOS Organization [facility] Address [address] [place] [address] Care Team Providers Care Savings Counselor Name Role Phone MELANI PALACIOS Unavailable PROBLEMS Type Condition ICD9-CM Code [id number] Code Onset Dates Condition Status SNOMED Code Problem Generalized anxiety disorder F41.1 Active 74959493 Problem Major depressive disorder, recurrent episode, moderate F33.1 Active 812481859 Problem BMI 36.0-36.9,adult Z68.36 Active 900881679 Problem Chronic pain G89.29 Active 52272083 Problem Low back pain M54.5 Active 433604131 Problem Gastroesophageal reflux disease, esophagitis presence not specified K21.9 Active 767260422 Problem Hyperinsulinemia E16.1 Active 97068163 Problem COPD (chronic obstructive pulmonary disease) J44.9 Active 94343948 ALLERGIES No Information SOCIAL HISTORY Never Assessed PLAN OF CARE VITAL SIGNS MEDICATIONS Medication Instructions Dosage Frequency Start Date End Date Duration Status Ativan 0.5 MG Orally 3 times a day 1 tablet as needed 8h 23 Nov, 2014 28 days Active Ultram 50 MG Orally 2 times a day 2 tablets 12h Nov, 28 days Active RESULTS No Results PROCEDURES [...]
--- OUTSIDE RECORDS SUMMARY | 2017-10-13 09:00 | XMS REPORT ---
Author Author MELANI PALACIOS Organization [employer] Address Unknown Phone Unavailable Care Team Providers Care Municipal Clerk Name Role Phone MELANI PALACIOS CP Unavailable [...] 0 50 mg 2 times a day Rx to be filled 10/26/15 January 01, 2015 take 2 tablet by Oral route Ativan NDC [address]-32 0.5 MG Rx to be filled on 10/26/15 Dec 22, 2014 1 tablet by Oral route 3 times per day PRN Results No Known Results Summary Purpose [employer] Submission
--- OUTSIDE RECORDS SUMMARY | 2017-10-13 09:00 | XMS REPORT ---
Author Author MELANI PALACIOS Organization [facility] Address [address] [place] [address] Care Team Providers Care Magnetic Prospecting Operator Name Role Phone MELANI PALACIOS Unavailable PROBLEMS Type Condition ICD9-CM Code XBE38-DD Code Onset Dates Condition Status SNOMED Code Problem Major depressive disorder, recurrent episode, moderate F33.1 Active 385568704 Problem Chronic pain G89.29 Active 62418760 Problem Hyperinsulinemia E16.1 Active 20102405 Problem Gastroesophageal reflux disease, esophagitis presence not specified K21.9 Active 135810027 Problem Generalized anxiety disorder F41.1 Active 05028642 Problem COPD (chronic obstructive pulmonary disease) J44.9 Active 55621709 Problem Low back pain M54.5 Active 315583607 ALLERGIES No Information SOCIAL HISTORY Never Assessed [...]
--- OUTSIDE RECORDS SUMMARY | 2017-10-13 09:00 | XMS REPORT ---
Author Author MELANI PALACIOS [facility] Address [address] [place] [address] Care Team Providers Care Docking Pilot Name Role Phone MELANI PALACIOS Unavailable PROBLEMS Type Condition ICD9-CM Code DNM08-AB Code Onset Dates Condition Status SNOMED Code Problem Major depressive disorder, recurrent episode, moderate F33.1 Active 413262115 Problem Chronic pain G89.29 Active 13703946 Problem Hyperinsulinemia E16.1 Active 66417221 Problem Gastroesophageal reflux disease, esophagitis presence not specified K21.9 Active 700143757 Problem Generalized anxiety disorder F41.1 Active 73666017 Problem COPD (chronic obstructive pulmonary disease) J44.9 Active 14187009 Problem Low back pain M54.5 Active 049520258 ALLERGIES No Information SOCIAL HISTORY Never Assessed PLAN OF CARE VITAL SIGNS MEDICATIONS Unknown Medications RESULTS No Results PROCEDURES No Known procedures IMMUNIZATIONS No Known Immunizations MEDICAL (GENERAL) HISTORY Type Description Date Medical History hypertension Medical History depression Medical History anxiety Medical History chronic back pain Surgical History partial hysterectomy Surgical History DNC Surgical History heart cath Hospitalization History surgeries Hospitalization History stomach problems Hospitalization History [facility] for neck pain 12/15
--- OUTSIDE RECORDS SUMMARY | 2017-10-13 09:00 | XMS REPORT ---
Author Author AMPARO PARDO [employer] Address Unknown Phone Unavailable Care Team Providers Care Cfo Name Role Phone AMPARO PRADO Unavailable Allergies No Known Allergies Problems Problem Type Condition Code Onset Dates Condition Status Problem Generalized anxiety disorder F41.1 Active Problem Esophageal reflux 530.81 Active Problem Major depressive disorder, recurrent episode, moderate F33.1 Active Assessment BMI 36.0-36.9,adult Z68.36 Active Medications No Known Medications Procedures Procedure Coding System Code Date LIPID PANEL CPT-4 52868 February 23, 2016 ASSAY, GLUCOSE, BLOOD QUANT CPT-4 19429 February 23, 2016 Results Name Result Date Reference Range Unit Abnormality Flag GLUCOSE, SERUM ----Glucose, Serum 112 51632318 65-99 mg/dL H LIPID PANEL ----VLDL Cholesterol Edwar 20 85245568 5-40 mg/dL ----LDL Cholesterol Calc 191 98572373 0-99 mg/dL H ----Triglycerides 101 22748041 0-149 mg/dL ----HDL Cholesterol 35 77861891 >39 mg/dL L ----Cholesterol, Total 246 73631158 100-199 mg/dL H Summary Purpose [employer]ClinicalWorks Submission
--- OUTSIDE RECORDS SUMMARY | 2017-10-13 09:00 | XMS REPORT ---
Author Author MELANI PALACIOS Organization [employer] Address Unknown Phone Unavailable Care Team Providers Care Sales Representative Consultant Name Role Phone MELANI PALACIOS CP Unavailable Allergies No Known Allergies Problems Problem Type Condition Code Onset Dates Condition Status Problem Abdominal pain, unspecified site 789.00 Active Problem Lipoma of other specified sites 214.8 Active Problem Cellulitis and abscess of trunk 682.2 Active Problem Generalized anxiety disorder 300.02 Active Assessment Depression, major, recurrent, moderate 296.32 Active Problem Unspecified diseases of conjunctiva due to viruses 077.99 Active Assessment Essential hypertension 401.9 Active Problem Depression, major, recurrent, moderate 296.32 Active Problem Abnormal weight gain 783.1 Active Problem Abdominal pain, epigastric 789.06 Active Problem Acute sinusitis, unspecified 461.9 Active Problem Other malaise and fatigue 780.79 Active Problem Screening for malignant neoplasm of the cervix V76.2 Active Problem Unspecified breast screening V76.10 Active Assessment Generalized anxiety disorder 300.02 Active Problem Esophageal reflux 530.81 Active Problem [...] Medications Procedures Procedure Coding System Code Date COMPLETE CBC W/AUTO DIFF WBC CPT-4 46555 Jul 29, 2015 COMPREHEN METABOLIC PANEL CPT-4 67840 Jul 29, 2015 VENIPUNCT, ROUTINE* CPT-4 86298 Jul 29, 2015 LIPID PANEL CPT-4 32263 Jul 29, 2015 Results Name Result Date Reference Range Unit Abnormality Flag ROUTINE VENIPUNCTURE CBC Summary Purpose [employer]ClinicalWorks Submission
--- OUTSIDE RECORDS SUMMARY | 2017-10-13 09:00 | XMS REPORT ---
Author Author MELANI PALACIOS [facility] Address [address] [place] [address] Care Team Providers Care Senior Wind Turbine Technician Name Role Phone MELANI PALACIOS Unavailable PROBLEMS Type Condition ICD9-CM Code ITQ09-GR Code Onset Dates Condition Status SNOMED Code Problem COPD (chronic obstructive pulmonary disease) J44.9 Active 09733230 Problem Low back pain M54.5 Active 089362632 Problem Generalized anxiety disorder F41.1 Active 88882226 Assessment Low back pain M54.5 Sep, Active 827516020 Problem Gastroesophageal reflux disease, esophagitis presence not specified K21.9 Active 712902949 Problem Major depressive disorder, recurrent episode, moderate F33.1 Active 916278738 ALLERGIES Substance Reaction Event Type Date Status N.K.D.A. Unknown Non Drug Allergy Sep, Unknown SOCIAL HISTORY No smoking Hx information available PLAN OF CARE VITAL SIGNS Height 63 in 2016-10-06 Weight 204.3 lbs 2016-10-06 Heart Rate 86 bpm 2016-10-06 Respiratory Rate 20 2016-10-06 BMI 36.19 kg/m2 2016-10-06 Blood pressure systolic 122 mmHg 2016-10-06 Blood pressure diastolic 82 mmHg 2016-10-06 MEDICATIONS Medication Instructions Dosage Frequency Start Date End Date Duration Status Ativan 0.5 MG Orally 3 times a day 1 tablet as needed 8h Nov, 28 days Active tramadol 50 mg by oral route 2 times a day 2 tablets 12h Dec, 28 days Active Aspirin 325 MG Orally Once a day 1 tablet 24h Sep, 30 days Active Loratadine 10 MG TAKE ONE TABLET BY MOUTH ONCE DAILY 30 Active Spiriva Respimat 1.25 MCG/ACT Inhalation Once a day 2 puffs 24h Jan, Apr, 90 days Active Amlodipine Besylate 10 mg Orally Once a day 1 tablet 24h Sep, 30 days Active Nexium 40 mg Orally Once a day 1 capsule 24h 30 days Active Spiriva Respimat 1.25 MCG/ACT Inhalation Once a day 2 puffs 24h Dec, Mar, 90 days Active Accuretic 20-25 MG TAKE ONE TABLET BY MOUTH ONCE DAILY 30 Active Cymbalta 60 mg Orally Once a day 1 capsule 24h 30 days Active RESULTS Name Result Date Reference Range MRI : Lumbar w/o contrast 2016-10-10 PROCEDURES Procedure Date Ordered Related Diagnosis Body Site Office Visit, Est Pt., Level 3 Oct 06, 2016 IMMUNIZATIONS No Known Immunizations
--- OUTSIDE RECORDS SUMMARY | 2017-10-13 09:00 | XMS REPORT ---
Author Author MELANI PALACIOS Organization [employer] Address Unknown Phone Unavailable Care Team Providers Care Archeology Faculty Member Name Role Phone MELANI PALACIOS CP Unavailable [...] Date End Date Status Dosage Ativan NDC [address]-12 0.5 MG Orally 3 times a day Dec 22, 2014 1 tablet as needed tramadol NDC 0 50 mg by oral route 2 times a day January 01, 2015 2 tablets Results No Known Results Summary Purpose [employer] Submission
--- OUTSIDE RECORDS SUMMARY | 2017-10-13 09:00 | XMS REPORT ---
Author Author MELANI PALACIOS [facility] Address [address] [place] [address] Care Team Providers Care Snow Groomer Name Role Phone MELANI PALACIOS Unavailable PROBLEMS Type Condition ICD9-CM Code TRQ71-DB Code Onset Dates Condition Status SNOMED Code Problem Major depressive disorder, recurrent episode, moderate F33.1 Active 011926531 Problem Chronic pain G89.29 Active 23616130 Problem Hyperinsulinemia E16.1 Active 23090907 Problem Gastroesophageal reflux disease, esophagitis presence not specified K21.9 Active 040219200 Problem Generalized anxiety disorder F41.1 Active 98673967 Problem COPD (chronic obstructive pulmonary disease) J44.9 Active 66129279 Problem Low back pain M54.5 Active 476067685 ALLERGIES Unknown Allergies SOCIAL HISTORY No smoking Hx information available PLAN OF CARE VITAL SIGNS MEDICATIONS Medication Instructions Dosage Frequency Start Date End Date Duration Status Ultram 50 MG Orally 2 times a day 2 tablets 12h Nov, 28 days Active Ativan 0.5 MG Orally 3 times a day 1 tablet as needed 8h 23 Nov, 2014 28 days Active RESULTS No Results PROCEDURES No Known procedures IMMUNIZATIONS No Known Immunizations
--- OUTSIDE RECORDS SUMMARY | 2017-10-13 09:00 | XMS REPORT ---
Author Author GISELA JOLLEY [facility] Address [address] [place] [address] Care Team Providers Care Molded Grid And Parts Inspector Name Role Phone GISELA JOLLEY Unavailable PROBLEMS Type Condition ICD9-CM Code LRW52-KM Code Onset Dates Condition Status SNOMED Code Problem Major depressive disorder, recurrent episode, moderate F33.1 Active 885849261 Problem Chronic pain G89.29 Active 10241172 Problem Hyperinsulinemia E16.1 Active 24364913 Problem Gastroesophageal reflux disease, esophagitis presence not specified K21.9 Active 724096553 Problem Generalized anxiety disorder F41.1 Active 16070784 Problem COPD (chronic obstructive pulmonary disease) J44.9 Active 23531036 Problem Low back pain M54.5 Active 043148373 ALLERGIES No Information SOCIAL HISTORY Never Assessed [...]
--- OUTSIDE RECORDS SUMMARY | 2017-10-13 09:00 | XMS REPORT ---
Author Author MELANI PALACIOS Organization [employer] Address Unknown Phone Unavailable Care Team Providers Care Bulb Sorter Name Role Phone MELANI PALACIOS CP Unavailable [...] vomiting 787.01 Active Medications No Known Medications Results No Known Results Summary Purpose [employer] Submission
--- OUTSIDE RECORDS SUMMARY | 2017-10-13 09:01 | XMS REPORT | Continuity of Care Document ---
Author Author [facility] Organization [facility] Address Unknown Phone Unavailable Allergies Active Description Code Type Severity Reaction Onset Reported/Identified Relationship to Patient Clinical Status Yes Percocet Drug Allergy N/A N/A 03/19/2009 Yes Percodan Drug Allergy N/A N/A 03/19/2009 Yes Percocet Drug Allergy 03/19/2009 Yes Percodan Drug Allergy 03/19/2009 Yes acetaminophen [id number] Drug Allergy Mild N/A 06/15/2014 Yes ENVIRONMENTAL ENVIRONMENTAL Mild N/A 06/15/2014 Yes oxycodone [id number] Drug Allergy Mild N/A 06/15/2014 Medications There is no data. Problems Date Dx Coded Attending Type Code Diagnosis Diagnosed By 12/10/2008 401.1 BENIGN ESSENTIAL HYPERTENSION 12/10/2008 784.0 Headache 12/10/2008 MABEL PALACIOS APRNA S 401.1 BENIGN ESSENTIAL HYPERTENSION 12/10/2008 TOYA PALACIOS APRNNDA S 784.0 Headache 12/10/2008 MABEL PALACIOS APRNA S 401.1 BENIGN ESSENTIAL HYPERTENSION 12/10/2008 TOYA PALACIOS APRNNDA S 784.0 Headache 12/10/2008 MABEL PALACIOS APRNA S 401.1 BENIGN ESSENTIAL HYPERTENSION 12/10/2008 TOYA PALACIOS APRNNDA S 784.0 Headache 12/10/2008 TAIWO SHADE CUTTER, VALERIE D 401.1 BENIGN ESSENTIAL HYPERTENSION 12/10/2008 TAIWO SHADE CUTTER, VALERIE D 784.0 Headache 12/10/2008 TAIWO SHADE CUTTER, VALERIE D 401.1 BENIGN ESSENTIAL HYPERTENSION 12/10/2008 TAIWO SHADE CUTTER, VALERIE D 784.0 Headache 12/10/2008 TOYA PALACIOS APRNNDA S 401.1 BENIGN ESSENTIAL HYPERTENSION 12/10/2008 TOYA PALACIOS APRNNDA S 784.0 Headache 12/10/2008 PHILIP OPEN HEARTH DOOR LINER, MELANI S 401.1 BENIGN ESSENTIAL HYPERTENSION 12/10/2008 PHILIP OPEN HEARTH DOOR LINER, MELANI S 784.0 Headache 12/10/2008 PHILIP OPEN HEARTH DOOR LINER, MELANI S 401.1 BENIGN ESSENTIAL HYPERTENSION 12/10/2008 PHILIP OPEN HEARTH DOOR LINER, MELANI S 784.0 Headache 12/10/2008 PHILIP OPEN HEARTH DOOR LINER, MELANI S 401.1 BENIGN ESSENTIAL HYPERTENSION 12/10/2008 PHILIP OPEN HEARTH DOOR LINER, MELANI S 784.0 Headache 12/10/2008 PHILIP OPEN HEARTH DOOR LINER, MELANI S 401.1 BENIGN ESSENTIAL HYPERTENSION 12/10/2008 PHILIP OPEN HEARTH DOOR LINER, MELANI S 784.0 Headache 12/10/2008 PHILIP OPEN HEARTH DOOR LINER, MELANI S 401.1 BENIGN ESSENTIAL HYPERTENSION 12/10/2008 PHILIP OPEN HEARTH DOOR LINER, MELANI S 784.0 Headache 12/10/2008 PHILIP OPEN HEARTH DOOR LINER, MELANI S 401.1 BENIGN ESSENTIAL HYPERTENSION 12/10/2008 PHILIP OPEN HEARTH DOOR LINER, MELANI S 784.0 Headache 12/10/2008 PHILIP OPEN HEARTH DOOR LINER, MELANI S 401.1 BENIGN ESSENTIAL HYPERTENSION 12/10/2008 PHILIP OPEN HEARTH DOOR LINER, MELANI S 784.0 Headache 12/10/2008 PHILIP OPEN HEARTH DOOR LINER, MELANI S 401.1 BENIGN ESSENTIAL HYPERTENSION 12/10/2008 PHILIP OPEN HEARTH DOOR LINER, MELANI S 784.0 Headache 12/10/2008 PHILIP OPEN HEARTH DOOR LINER, MELANI S 401.1 BENIGN ESSENTIAL HYPERTENSION 12/10/2008 PHILIP OPEN HEARTH DOOR LINER, MELANI S 784.0 Headache 12/10/2008 PHILIP OPEN HEARTH DOOR LINER, MELANI S 401.1 BENIGN ESSENTIAL HYPERTENSION 12/10/2008 PHILIP OPEN HEARTH DOOR LINER, MELANI S 784.0 Headache 12/10/2008 PHILIP OPEN HEARTH DOOR LINER, MELANI S 401.1 BENIGN ESSENTIAL HYPERTENSION 12/10/2008 PHILIP OPEN HEARTH DOOR LINER, MELANI S 784.0 Headache 12/10/2008 PHILIP OPEN HEARTH DOOR LINER, MELANI S 401.1 BENIGN ESSENTIAL HYPERTENSION 12/10/2008 PHILIP OPEN HEARTH DOOR LINER, MELANI S 784.0 Headache 12/10/2008 FANTASMA SHAH, SAM D 401.1 BENIGN ESSENTIAL HYPERTENSION 12/10/2008 AFNTASMA SHAH, SAM Covarrubias 784.0 Headache 12/10/2008 MABEL PALACIOS APRNA S 401.1 BENIGN ESSENTIAL HYPERTENSION 12/10/2008 TOYA PALACIOS APRNNDA S 784.0 Headache 03/19/2009 724.2 lower back pain 03/19/2009 V72.31 Pelvic Exam ( internal) 03/19/2009 V74.5 Visit For: Screening Exam Bact/spirochetal Venereal Disease 03/19/2009 PHILIP GOFF MELANI S 724.2 lower back pain 03/19/2009 PHILIP GOFF MELANI S V72.31 Pelvic Exam (internal) 03/19/2009 TOYA PALACIOS APRNNDA S V74.5 Visit For: Screening Exam Bact/spirochetal Venereal Disease 03/19/2009 TOYA PALACIOS APRNNDA S 724.2 lower back pain 03/19/2009 TOYA PALACIOS APRNNDA S V72.31 Pelvic Exam (internal) 03/19/2009 TOYA PALACISO APRNNDA S V74.5 Visit For: Screening Exam Bact/spirochetal Venereal Disease 03/19/2009 TOYA PALACIOS APRNNDA S 724.2 lower back pain 03/19/2009 TOYA PALCAIOS APRNNDA S V72.31 Pelvic Exam (internal) 03/19/2009 TOYA PALACIOS APRNNDA S V74.5 Visit For: Screening Exam Bact/spirochetal Venereal Disease 03/19/2009 TAIWO SHADE CUTTER, VALERIE D 724.2 lower back pain 03/19/2009 TAIWO SHADE CUTTER, VALERIE D V72.31 Pelvic Exam (internal) 03/19/2009 TAIWO SHADE CUTTER, VALERIE D V74.5 Visit For: Screening Exam Bact/spirochetal Venereal Disease 03/19/2009 TAIWO SHADE CUTTER, VALERIE D 724.2 lower back pain 03/19/2009 TAIWO SHADE CUTTER, VALERIE D V72.31 Pelvic Exam (internal) 03/19/2009 TAIWO SHADE CUTTER, VALERIE D V74.5 Visit For: Screening Exam Bact/spirochetal Venereal Disease 03/19/2009 PHILIP OPEN HEARTH DOOR LINER, MELANI S 724.2 lower back pain 03/19/2009 PHILIP OPEN HEARTH DOOR LINER, MELANI S V72.31 Pelvic Exam (internal) 03/19/2009 PHILIP OPEN HEARTH DOOR LINER, MELANI S V74.5 Visit For: Screening Exam Bact/spirochetal Venereal Disease 03/19/2009 PHILIP OPEN HEARTH DOOR LINER, MELANI S 724.2 lower back pain 03/19/2009 PHILIP OPEN HEARTH DOOR LINER, MLEANI S V72.31 Pelvic Exam (internal) 03/19/2009 PHILIP OPEN HEARTH DOOR LINER, MELANI S V74.5 Visit For: Screening Exam Bact/spirochetal Venereal Disease 03/19/2009 PHILIP OPEN HEARTH DOOR LINER, MELANI S 724.2 lower back pain 03/19/2009 PHILIP OPEN HEARTH DOOR LINER, MELANI S V72.31 Pelvic Exam (internal) 03/19/2009 PHILIP OPEN HEARTH DOOR LINER, MELANI S V74.5 Visit For: Screening Exam Bact/spirochetal Venereal Disease 03/19/2009 PHILIP OPEN HEARTH DOOR LINER, MELANI S 724.2 lower back pain 03/19/2009 PHILIP OPEN HEARTH DOOR LINER, MELANI S V72.31 Pelvic Exam (internal) 03/19/2009 PHILIP OPEN HEARTH DOOR LINER, MELANI S V74.5 Visit For: Screening Exam Bact/spirochetal Venereal Disease 03/19/2009 PHILIP OPEN HEARTH DOOR LINER, MELANI S 724.2 lower back pain 03/19/2009 PHILIP OPEN HEARTH DOOR LINER, MELANI S V72.31 Pelvic Exam (internal) 03/19/2009 PHILIP OPEN HEARTH DOOR LINER, MELANI S V74.5 Visit For: Screening Exam Bact/spirochetal Venereal Disease 03/19/2009 PHILIP OPEN HEARTH DOOR LINER, MELANI S 724.2 lower back pain 03/19/2009 PHILIP OPEN HEARTH DOOR LINER, MELANI S V72.31 Pelvic Exam (internal) 03/19/2009 PHILIP OPEN HEARTH DOOR LINER, MELANI S V74.5 Visit For: Screening Exam Bact/spirochetal Venereal Disease 03/19/2009 PHILIP OPEN HEARTH DOOR LINER, MELANI S 724.2 lower back pain 03/19/2009 PHILIP OPEN HEARTH DOOR LINER, MELANI S V72.31 Pelvic Exam (internal) 03/19/2009 PHILIP OPEN HEARTH DOOR LINER, MELANI S V74.5 Visit For: Screening Exam Bact/spirochetal Venereal Disease 03/19/2009 PHILIP OPEN HEARTH DOOR LINER, MELANI S 724.2 lower back pain 03/19/2009 PHILIP OPEN HEARTH DOOR LINER, MELANI S V72.31 Pelvic Exam (internal) 03/19/2009 PHILIP OPEN HEARTH DOOR LINER, MELANI S V74.5 Visit For: Screening Exam Bact/spirochetal Venereal Disease 03/19/2009 PHILIP OPEN HEARTH DOOR LINER, MELANI S 724.2 lower back pain 03/19/2009 PHILIP OPEN HEARTH DOOR LINER, MELANI S V72.31 Pelvic Exam (internal) 03/19/2009 PHILIP OPEN HEARTH DOOR LINER, MELANI S V74.5 Visit For: Screening Exam Bact/spirochetal Venereal Disease 03/19/2009 PHILIP OPEN HEARTH DOOR LINER, MELANI S 724.2 lower back pain 03/19/2009 PHILIP OPEN HEARTH DOOR LINER, MELANI S V72.31 Pelvic Exam (internal) 03/19/2009 PHILIP OPEN HEARTH DOOR LINER, MELANI S V74.5 Visit For: Screening Exam Bact/spirochetal Venereal Disease 03/19/2009 PHILIP OPEN HEARTH DOOR LINER, MELANI S 724.2 LOWER BACK PAIN 03/19/2009 PHILIP OPEN HEARTH DOOR LINER, MELANI S V72.31 Pelvic Exam (internal) 03/19/2009 PHILIP OPEN HEARTH DOOR LINER, MELANI S V74.5 Visit For: Screening Exam Bact/spirochetal Venereal Disease 03/19/2009 PHILIP OPEN HEARTH DOOR LINER, MELANI S 724.2 LOWER BACK PAIN 03/19/2009 PHILIP OPEN HEARTH DOOR LINER, MELANI S V72.31 Pelvic Exam (internal) 03/19/2009 PHILIP OPEN HEARTH DOOR LINER, MELANI S V74.5 Visit For: Screening Exam Bact/spirochetal Venereal Disease 03/19/2009 PHILIP OPEN HEARTH DOOR LINER, MELANI S 724.2 LOWER BACK PAIN 03/19/2009 PHILIP OPEN HEARTH DOOR LINER, MELANI S V72.31 Pelvic Exam (internal) 03/19/2009 PHILIP OPEN HEARTH DOOR LINER, MELANI S V74.5 Visit For: Screening Exam Bact/spirochetal Venereal Disease 03/19/2009 FANTASMA SHAH, SAM Covarrubias 724.2 LOWER BACK PAIN 03/19/2009 FANTASMA SHAH, SAM Covarrubias V72.31 Pelvic Exam (internal) 03/19/2009 FANTASMA SHAH, SAM Covarrubias V74.5 Visit For: Screening Exam Bact/spirochetal Venereal Disease 03/19/2009 PHILIP GOFF MELANI S 724.2 lower back pain 03/19/2009 PHILIP MARTINESN MELANI S V72.31 Pelvic Exam (internal) 03/19/2009 PHILIP OPEN HEARTH DOOR LINER, MELANI S V74.5 Visit For: Screening Exam Bact/spirochetal Venereal Disease 09/29/2010 Ot 278.00 09/29/2010 Ot 305.1 09/29/2010 Ot 311 09/29/2010 Ot 401.9 09/29/2010 Ot 530.81 09/29/2010 Ot 746.85 09/29/2010 Ot 786.59 09/29/2010 Ot V10.41 09/29/2010 Ot V85.38 10/13/2010 300.00 ANXIETY UNSPEC 10/13/2010 PHILIP OPEN HEARTH DOOR LINER, MELANI S 300.00 ANXIETY UNSPEC 10/13/2010 PHILIP OPEN HEARTH DOOR LINER, MELANI S 300.00 ANXIETY UNSPEC 10/13/2010 PHILIP OPEN HEARTH DOOR LINER, MELANI S 300.00 ANXIETY UNSPEC 10/13/2010 TAIWO ALCARAZ, VALERIE D 300.00 ANXIETY UNSPEC 10/13/2010 TAIWO ALCARAZ, VALERIE D 300.00 ANXIETY UNSPEC 10/13/2010 PHILIP OPEN HEARTH DOOR LINER, MELANI S 300.00 ANXIETY UNSPEC 10/13/2010 PHILIP OPEN HEARTH DOOR LINER, MELANI S 300.00 ANXIETY UNSPEC 10/13/2010 PHILIP OPEN HEARTH DOOR LINER, MELANI S 300.00 ANXIETY UNSPEC 10/13/2010 PHILIP OPEN HEARTH DOOR LINER, MELANI S 300.00 ANXIETY UNSPEC 10/13/2010 PHILIP OPEN HEARTH DOOR LINER, MELANI S 300.00 ANXIETY UNSPEC 10/13/2010 PHILIP OPEN HEARTH DOOR LINER, MELANI S 300.00 ANXIETY UNSPEC 10/13/2010 PHILIP OPEN HEARTH DOOR LINER, MELANI S 300.00 ANXIETY UNSPEC 10/13/2010 PHILIP OPEN HEARTH DOOR LINER, MELANI S 300.00 ANXIETY UNSPEC 10/13/2010 PHILIP OPEN HEARTH DOOR LINER, MELANI S 300.00 ANXIETY UNSPEC 10/13/2010 PHILIP OPEN HEARTH DOOR LINER, MELANI S 300.00 ANXIETY UNSPEC 10/13/2010 PHILIP OPEN HEARTH DOOR LINER, MELANI S 300.00 ANXIETY UNSPEC 10/13/2010 PHILIP OPEN HEARTH DOOR LINER, MELANI S 300.00 ANXIETY UNSPEC 10/13/2010 PHILIP OPEN HEARTH DOOR LINER, MELANI S 300.00 ANXIETY UNSPEC 10/13/2010 FANTASMA SHAH, SAM Covarrubias 300.00 ANXIETY UNSPEC 10/13/2010 PHILIP OPEN HEARTH DOOR LINER, MELANI S 300.00 ANXIETY UNSPEC 10/07/2011 V68.1 ISSUE OF REPEAT PRESCRIPTIONS 10/07/2011 PHILIP GOFF MELANI S V68.1 ISSUE OF REPEAT PRESCRIPTIONS 10/07/2011 PHILIP GOFF MELANI S V68.1 ISSUE OF REPEAT PRESCRIPTIONS 10/07/2011 PHILIP GOFF MELANI S V68.1 ISSUE OF REPEAT PRESCRIPTIONS 10/07/2011 TAIWO SHADE CUTTER, VALERIE D V68.1 ISSUE OF REPEAT PRESCRIPTIONS 10/07/2011 TAIWO SHADE CUTTER, VALERIE D V68.1 ISSUE OF REPEAT PRESCRIPTIONS 10/07/2011 PHILIP OPEN HEARTH DOOR LINER, MELANI S V68.1 ISSUE OF REPEAT PRESCRIPTIONS 10/07/2011 PHILIP OPEN HEARTH DOOR LINER, MELANI S V68.1 ISSUE OF REPEAT PRESCRIPTIONS 10/07/2011 PHILIP OPEN HEARTH DOOR LINER, MELANI S V68.1 ISSUE OF REPEAT PRESCRIPTIONS 10/07/2011 PHILIP GOFF MELANI S V68.1 ISSUE OF REPEAT PRESCRIPTIONS 10/07/2011 PHILIP OPEN HEARTH DOOR LINER, MELANI S V68.1 ISSUE OF REPEAT PRESCRIPTIONS 10/07/2011 PHILIP OPEN HEARTH DOOR LINER, MELANI S V68.1 ISSUE OF REPEAT PRESCRIPTIONS 10/07/2011 PHILIP OPEN HEARTH DOOR LINER, MELANI S V68.1 ISSUE OF REPEAT PRESCRIPTIONS 10/07/2011 PHILIP OPEN HEARTH DOOR LINER, MELANI S V68.1 ISSUE OF REPEAT PRESCRIPTIONS 10/07/2011 PHILIP OPEN HEARTH DOOR LINER, MELANI S V68.1 ISSUE OF REPEAT PRESCRIPTIONS 10/07/2011 PHILIP OPEN HEARTH DOOR LINER, MELANI S V68.1 ISSUE OF REPEAT PRESCRIPTIONS 10/07/2011 PHILIP TOYA GOFFNDA S V68.1 ISSUE OF REPEAT PRESCRIPTIONS 10/07/2011 PHILIP TOYA GOFFNDA S V68.1 ISSUE OF REPEAT PRESCRIPTIONS 10/07/2011 PHILIP OPEN HEARTH DOOR LINERTOYA KilgoreNDA S V68.1 ISSUE OF REPEAT PRESCRIPTIONS 10/07/2011 FATNASMA SHAH, SAM Covarrubias V68.1 ISSUE OF REPEAT PRESCRIPTIONS 10/07/2011 PHILIP TOYA GOFFNDA S V68.1 ISSUE OF REPEAT PRESCRIPTIONS 09/03/2012 311 DEPRESSIVE DISORDER NOS 09/03/2012 780.79 fatigue 09/03/2012 783.1 WEIGHT GAIN ABNORMAL 09/03/2012 TOYA PALACIOS APRNNDA S 311 DEPRESSIVE DISORDER NOS 09/03/2012 TOYA PALACIOS APRNNDA S 780.79 fatigue 09/03/2012 PHILIP OPEN HEARTH DOOR LINERTOYA KilgoreNDA S 783.1 WEIGHT GAIN ABNORMAL 09/03/2012 TOYA PALACIOS APRNNDA S 311 DEPRESSIVE DISORDER NOS 09/03/2012 TOYA PALACIOS APRNNDA S 780.79 fatigue 09/03/2012 PHILIP OPEN HEARTH DOOR LINERTOYA KilgoreNDA S 783.1 WEIGHT GAIN ABNORMAL 09/03/2012 TOYA PALACIOS APRNNDA S 311 DEPRESSIVE DISORDER NOS 09/03/2012 TOYA PALACIOS APRNNDA S 780.79 fatigue 09/03/2012 PHILIP OPEN HEARTH DOOR LINERTOYA KilgoreNDA S 783.1 WEIGHT GAIN ABNORMAL 09/03/2012 TAIWO SHADE CUTTER, VALERIE D 311 DEPRESSIVE DISORDER NOS 09/03/2012 TAIWO SHADE CUTTER, VALERIE D 780.79 fatigue 09/03/2012 TAIWO SHADE CUTTER, VALERIE D 783.1 WEIGHT GAIN ABNORMAL 09/03/2012 TAIWO SHADE CUTTER, VALERIE D 311 DEPRESSIVE DISORDER NOS 09/03/2012 TAIWO SHADE CUTTER, VALERIE D 780.79 fatigue 09/03/2012 TAIWO SHADE CUTTER, VALERIE D 783.1 WEIGHT GAIN ABNORMAL 09/03/2012 PHILIP GOFF MELANI S 311 DEPRESSIVE DISORDER NOS 09/03/2012 PHILIP GOFF MELANI S 780.79 fatigue 09/03/2012 TOYA PALACIOS APRNNDA S 783.1 WEIGHT GAIN ABNORMAL 09/03/2012 PHILIP OPEN HEARTH DOOR LINER, MELANI S 311 DEPRESSIVE DISORDER NOS 09/03/2012 PHILIP OPEN HEARTH DOOR LINER, MELANI S 780.79 fatigue 09/03/2012 PHILIP OPEN HEARTH DOOR LINER, MELANI S 783.1 WEIGHT GAIN ABNORMAL 09/03/2012 PHILIP OPEN HEARTH DOOR LINER, MELANI S 311 DEPRESSIVE DISORDER NOS 09/03/2012 PHILIP OPEN HEARTH DOOR LINER, MELANI S 780.79 fatigue 09/03/2012 PHILIP MARTINESN, MELANI S 783.1 WEIGHT GAIN ABNORMAL 09/03/2012 PHILIP OPEN HEARTH DOOR LINER, MELANI S 311 DEPRESSIVE DISORDER NOS 09/03/2012 PHILIP OPEN HEARTH DOOR LINER, MELANI S 780.79 fatigue 09/03/2012 PHILIP OPEN HEARTH DOOR LINER, MELANI S 783.1 WEIGHT GAIN ABNORMAL 09/03/2012 PHILIP OPEN HEARTH DOOR LINER, MELANI S 311 DEPRESSIVE DISORDER NOS 09/03/2012 PHILIP OPEN HEARTH DOOR LINER, MELANI S 780.79 fatigue 09/03/2012 PHILIP MARTINESN, MELANI S 783.1 WEIGHT GAIN ABNORMAL 09/03/2012 PHILIP OPEN HEARTH DOOR LINER, MELANI S 311 DEPRESSIVE DISORDER NOS 09/03/2012 PHILIP OPEN HEARTH DOOR LINER, MELANI S 780.79 fatigue 09/03/2012 PHILIP MARTINESN, MELANI S 783.1 WEIGHT GAIN ABNORMAL 09/03/2012 PHILIP OPEN HEARTH DOOR LINER, MELANI S 311 DEPRESSIVE DISORDER NOS 09/03/2012 PHILIP OPEN HEARTH DOOR LINER, MELANI S 780.79 fatigue 09/03/2012 PHILIP MARTINESN, MELANI S 783.1 WEIGHT GAIN ABNORMAL 09/03/2012 PHILIP OPEN HEARTH DOOR LINER, MELANI S 311 DEPRESSIVE DISORDER NOS 09/03/2012 PHILIP OPEN HEARTH DOOR LINER, MELANI S 780.79 fatigue 09/03/2012 PHILIP OPEN HEARTH DOOR LINER, MELANI S 783.1 WEIGHT GAIN ABNORMAL 09/03/2012 PHILIP OPEN HEARTH DOOR LINER, MELANI S 311 DEPRESSIVE DISORDER NOS 09/03/2012 PHILIP OPEN HEARTH DOOR LINER, MELANI S 780.79 fatigue 09/03/2012 PHILIP OPEN HEARTH DOOR LINER, MELANI S 783.1 WEIGHT GAIN ABNORMAL 09/03/2012 PHILIP OPEN HEARTH DOOR LINER, MELANI S 311 DEPRESSIVE DISORDER NOS 09/03/2012 PHILIP OPEN HEARTH DOOR LINER, MELANI S 780.79 fatigue 09/03/2012 PHILIP GOFF, MELANI S 783.1 WEIGHT GAIN ABNORMAL 09/03/2012 PHILIP MARTINESN, MELANI S 311 DEPRESSIVE DISORDER NOS 09/03/2012 PHILIP GOFF, MELANI S 780.79 FATIGUE 09/03/2012 PHILIP GOFF, EMLANI S 783.1 WEIGHT GAIN ABNORMAL 09/03/2012 PHILIP MARTINESN, EMLANI S 311 DEPRESSIVE DISORDER NOS 09/03/2012 PHILIP MARTINESN, MELANI S 780.79 FATIGUE 09/03/2012 PHILIP MARTINESN, MELANI S 783.1 WEIGHT GAIN ABNORMAL 09/03/2012 PHILIP OPEN HEARTH DOOR LINER, MELANI S 311 DEPRESSIVE DISORDER NOS 09/03/2012 PHILIP MARTINESN, MELANI S 780.79 FATIGUE 09/03/2012 PHILIP OPEN HEARTH DOOR LINER, MELANI S 783.1 WEIGHT GAIN ABNORMAL 09/03/2012 SAM MEEK PHD 311 DEPRESSIVE DISORDER NOS 09/03/2012 SAM MEEK PHD 780.79 FATIGUE 09/03/2012 SAM MEEK PHD 783.1 WEIGHT GAIN ABNORMAL 09/03/2012 PHILIP OPEN HEARTH DOOR LINER, MELANI S 311 DEPRESSIVE DISORDER NOS 09/03/2012 PHILIP OPEN HEARTH DOOR LINER, MELANI S 780.79 fatigue 09/03/2012 PHILIP OPEN HEARTH DOOR LINER, MELANI S 783.1 WEIGHT GAIN ABNORMAL 09/25/2012 530.81 ESOPHAGEAL REFLUX 09/25/2012 V76.10 BREAST CANCER SCREENING 09/25/2012 V76.2 CERVICAL CANCER SCREENING (PAP SMEAR) 09/25/2012 PHILIP GOFF, MELANI S 530.81 ESOPHAGEAL REFLUX 09/25/2012 PHILIP OPEN HEARTH DOOR LINER, MELANI S V76.10 BREAST CANCER SCREENING 09/25/2012 PHILIP OPEN HEARTH DOOR LINER, MELANI S V76.2 CERVICAL CANCER SCREENING (PAP SMEAR) 09/25/2012 PHILIP OPEN HEARTH DOOR LINER, MELANI S 530.81 ESOPHAGEAL REFLUX 09/25/2012 PHILIP OPEN HEARTH DOOR LINER, MELANI S V76.10 BREAST CANCER SCREENING 09/25/2012 PHILIP OPEN HEARTH DOOR LINER, MELANI S V76.2 CERVICAL CANCER SCREENING (PAP SMEAR) 09/25/2012 PHILIP OPEN HEARTH DOOR LINER, MELANI S 530.81 ESOPHAGEAL REFLUX 09/25/2012 PHILIP GOFF, MELANI S V76.10 BREAST CANCER SCREENING 09/25/2012 PHILIP GOFF MELANI S V76.2 CERVICAL CANCER SCREENING (PAP SMEAR) 09/25/2012 TAIWO SHADE CUTTER, VALERIE D 530.81 ESOPHAGEAL REFLUX 09/25/2012 TAIWO SHADE CUTTER, VALERIE D V76.10 BREAST CANCER SCREENING 09/25/2012 TAIWO SHADE CUTTER, VALERIE D V76.2 CERVICAL CANCER SCREENING (PAP SMEAR) 09/25/2012 TAIWO SHADE CUTTER, VALERIE D 530.81 ESOPHAGEAL REFLUX 09/25/2012 TAIWO SHADE CUTTER, VALERIE D V76.10 BREAST CANCER SCREENING 09/25/2012 TAIWO SHADE CUTTER, VALERIE D V76.2 CERVICAL CANCER SCREENING (PAP SMEAR) 09/25/2012 PHILIP GOFF MELANI S 530.81 ESOPHAGEAL REFLUX 09/25/2012 PHILIP GOFF MELANI S V76.10 BREAST CANCER SCREENING 09/25/2012 PHILIP GOFF MELANI S V76.2 CERVICAL CANCER SCREENING (PAP SMEAR) 09/25/2012 PHILIP GOFF MELANI S 530.81 ESOPHAGEAL REFLUX 09/25/2012 PHILIP GOFF MELANI S V76.10 BREAST CANCER SCREENING 09/25/2012 PHILIP GOFF MELANI S V76.2 CERVICAL CANCER SCREENING (PAP SMEAR) 09/25/2012 PHILIP GOFF MELANI S 530.81 ESOPHAGEAL REFLUX 09/25/2012 PHILIP GOFF MELANI S V76.10 BREAST CANCER SCREENING 09/25/2012 PHILIP GOFF MELANI S V76.2 CERVICAL CANCER SCREENING (PAP SMEAR) 09/25/2012 PHILIP GOFF MELANI S 530.81 ESOPHAGEAL REFLUX 09/25/2012 PHILIP GOFF MELANI S V76.10 BREAST CANCER SCREENING 09/25/2012 PHILIP GOFF MELANI S V76.2 CERVICAL CANCER SCREENING (PAP SMEAR) 09/25/2012 PHILIP GOFF MELANI S 530.81 ESOPHAGEAL REFLUX 09/25/2012 PHILIP GOFF MELANI S V76.10 BREAST CANCER SCREENING 09/25/2012 PHILIP OPEN HEARTH DOOR LINER, MELANI S V76.2 CERVICAL CANCER SCREENING (PAP SMEAR) 09/25/2012 PHILIP OPEN HEARTH DOOR LINER, MELANI S 530.81 ESOPHAGEAL REFLUX 09/25/2012 PHILIP OPEN HEARTH DOOR LINER, MELANI S V76.10 BREAST CANCER SCREENING 09/25/2012 PHILIP OPEN HEARTH DOOR LINER, MELANI S V76.2 CERVICAL CANCER SCREENING (PAP SMEAR) 09/25/2012 PHILIP OPEN HEARTH DOOR LINER, MELANI S 530.81 ESOPHAGEAL REFLUX 09/25/2012 PHILIP OPEN HEARTH DOOR LINER, MELANI S V76.10 BREAST CANCER SCREENING 09/25/2012 PHILIP OPEN HEARTH DOOR LINER, MELANI S V76.2 CERVICAL CANCER SCREENING (PAP SMEAR) 09/25/2012 PHILIP OPEN HEARTH DOOR LINER, MELANI S 530.81 ESOPHAGEAL REFLUX 09/25/2012 PHILIP OPEN HEARTH DOOR LINER, MELANI S V76.10 BREAST CANCER SCREENING 09/25/2012 PHILIP GOFF, MELANI S V76.2 CERVICAL CANCER SCREENING (PAP SMEAR) 09/25/2012 PHILIP OPEN HEARTH DOOR LINER, MELANI S 530.81 ESOPHAGEAL REFLUX 09/25/2012 PHILIP OPEN HEARTH DOOR LINER, MELANI S V76.10 BREAST CANCER SCREENING 09/25/2012 PHILIP OPEN HEARTH DOOR LINER, MELANI S V76.2 CERVICAL CANCER SCREENING (PAP SMEAR) 09/25/2012 PHILIP OPEN HEARTH DOOR LINER, MELANI S 530.81 ESOPHAGEAL REFLUX 09/25/2012 PHILIP OPEN HEARTH DOOR LINER, MELANI S V76.10 BREAST CANCER SCREENING 09/25/2012 PHILIP GOFF, MELANI S V76.2 CERVICAL CANCER SCREENING (PAP SMEAR) 09/25/2012 PHILIP OPEN HEARTH DOOR LINER, MELANI S 530.81 ESOPHAGEAL REFLUX 09/25/2012 PHILIP OPEN HEARTH DOOR LINER, MELANI S V76.10 BREAST CANCER SCREENING 09/25/2012 PHILIP OPEN HEARTH DOOR LINER, MELANI S V76.2 CERVICAL CANCER SCREENING (PAP SMEAR) 09/25/2012 PHILIP OPEN HEARTH DOOR LINER, MELANI S 530.81 ESOPHAGEAL REFLUX 09/25/2012 PHILIP OPEN HEARTH DOOR LINER, MELANI S V76.10 BREAST CANCER SCREENING 09/25/2012 PHILIP MARTINESN, MELANI S V76.2 CERVICAL CANCER SCREENING (PAP SMEAR) 09/25/2012 PHILIP GOFF MELANI S 530.81 ESOPHAGEAL REFLUX 09/25/2012 PHILIP GOFF, MELANI S V76.10 BREAST CANCER SCREENING 09/25/2012 PHILIP GOFF MELANI S V76.2 CERVICAL CANCER SCREENING (PAP SMEAR) 09/25/2012 FANTASMA SHAH, SAM Covarrubias 530.81 ESOPHAGEAL REFLUX 09/25/2012 SAM MEEK PHD V76.10 BREAST CANCER SCREENING 09/25/2012 SAM MEEK PHD V76.2 CERVICAL CANCER SCREENING (PAP SMEAR) 09/25/2012 PHILIP GOFF MELANI S 530.81 ESOPHAGEAL REFLUX 09/25/2012 PHILIP GOFF MELANI S V76.10 BREAST CANCER SCREENING 09/25/2012 PHILIP GOFF MELANI S V76.2 CERVICAL CANCER SCREENING (PAP SMEAR) 10/20/2012 PHILIP GOFF, MELANI S 789.03 ABDOMINAL PAIN RIGHT LOWER QUADRANT 10/20/2012 PHILIP GOFF, MELANI S 789.03 ABDOMINAL PAIN RIGHT LOWER QUADRANT 10/20/2012 PHILIP GOFF, MELANI S 789.03 ABDOMINAL PAIN RIGHT LOWER QUADRANT 10/20/2012 TAIWO SHADE CUTTER, VALERIE D 789.03 ABDOMINAL PAIN RIGHT LOWER QUADRANT 10/20/2012 TAIWO SHADE CUTTER, VALERIE D 789.03 ABDOMINAL PAIN RIGHT LOWER [...] ABDOMINAL PAIN RIGHT LOWER QUADRANT 10/20/2012 PHILIP OPEN HEARTH DOOR LINER, MELANI S 789.03 ABDOMINAL PAIN RIGHT LOWER QUADRANT 10/20/2012 PHILIP OPEN HEARTH DOOR LINER, MELANI S 789.03 ABDOMINAL PAIN RIGHT LOWER QUADRANT 10/20/2012 PHILIP OPEN HEARTH DOOR LINER, MELANI S 789.03 ABDOMINAL PAIN RIGHT LOWER QUADRANT 10/20/2012 PHILIP OPEN HEARTH DOOR LINER, MELANI S 789.03 ABDOMINAL PAIN RIGHT LOWER QUADRANT 10/20/2012 PHILIP OPEN HEARTH DOOR LINER, MELANI S 789.03 ABDOMINAL PAIN RIGHT LOWER QUADRANT 10/20/2012 FANTASMA SHAH, SAM Covarrubias 789.03 ABDOMINAL PAIN RIGHT LOWER QUADRANT 12/12/2013 PHILIP OPEN HEARTH DOOR LINER, MELANI S 214.8 LIPOMA OF OTHER SPECIFIED SITES 12/12/2013 PHILIP OPEN HEARTH DOOR LINER, MELANI S 789.06 ABDOMINAL PAIN EPIGASTRIC 12/12/2013 PHILIP OPEN HEARTH DOOR LINER, MELANI S 214.8 LIPOMA OF OTHER SPECIFIED SITES 12/12/2013 PHILIP OPEN HEARTH DOOR LINER, MELANI S 789.06 ABDOMINAL PAIN EPIGASTRIC 12/12/2013 PHILIP OPEN HEARTH DOOR LINER, MELANI S 214.8 LIPOMA OF OTHER SPECIFIED SITES 12/12/2013 PHILIP OPEN HEARTH DOOR LINER, MELANI S 789.06 ABDOMINAL PAIN EPIGASTRIC 12/12/2013 PHILIP OPEN HEARTH DOOR LINER, MELANI S 214.8 LIPOMA OF OTHER SPECIFIED SITES 12/12/2013 PHILIP OPEN HEARTH DOOR LINER, MELANI S 789.06 ABDOMINAL PAIN EPIGASTRIC 12/12/2013 PHILIP OPEN HEARTH DOOR LINER, MELANI S 214.8 LIPOMA OF OTHER SPECIFIED SITES 12/12/2013 PHILIP OPEN HEARTH DOOR LINER, MELANI S 789.06 ABDOMINAL PAIN EPIGASTRIC 12/12/2013 PHILIP OPEN HEARTH DOOR LINER, MELANI S 214.8 LIPOMA OF OTHER SPECIFIED SITES 12/12/2013 PHILIP OPEN HEARTH DOOR LINER, MELANI S 789.06 ABDOMINAL PAIN EPIGASTRIC 12/12/2013 PHILIP OPEN HEARTH DOOR LINER, MELANI S 214.8 LIPOMA OF OTHER SPECIFIED SITES 12/12/2013 PHILIP OPEN HEARTH DOOR LINER, MELANI S 789.06 ABDOMINAL PAIN EPIGASTRIC 12/12/2013 PHILIP OPEN HEARTH DOOR LINER, MELANI S 214.8 LIPOMA OF OTHER SPECIFIED SITES 12/12/2013 PHILIP OPEN HEARTH DOOR LINER, MELANI S 789.06 ABDOMINAL PAIN EPIGASTRIC 12/12/2013 PHILIP OPEN HEARTH DOOR LINER, MELANI S 214.8 LIPOMA OF OTHER SPECIFIED SITES 12/12/2013 PHILIP OPEN HEARTH DOOR LINER, MELANI S 789.06 ABDOMINAL PAIN EPIGASTRIC 12/12/2013 PHILIP OPEN HEARTH DOOR LINER, MELANI S 214.8 LIPOMA OF OTHER SPECIFIED SITES 12/12/2013 PHILIP OPEN HEARTH DOOR LINER, MELANI S 789.06 ABDOMINAL PAIN EPIGASTRIC 12/12/2013 PHILIP OPEN HEARTH DOOR LINER, MELANI S 214.8 LIPOMA OF OTHER SPECIFIED SITES 12/12/2013 PHILIP OPEN HEARTH DOOR LINER, MELANI S 789.06 ABDOMINAL PAIN EPIGASTRIC 12/12/2013 PHILIP OPEN HEARTH DOOR LINER, MELANI S 214.8 LIPOMA OF OTHER SPECIFIED SITES 12/12/2013 PHILIP OPEN HEARTH DOOR LINER, MELANI S 789.06 ABDOMINAL PAIN EPIGASTRIC 12/12/2013 FANTASMA PHD, SAM Covarrubias 214.8 LIPOMA OF OTHER SPECIFIED SITES 12/12/2013 FANTASMA SHAH, SAM Covarrubias 789.06 ABDOMINAL PAIN EPIGASTRIC 12/26/2013 PHILIP OPEN HEARTH DOOR LINER, MELANI S 700 CALLUS/CORN 12/26/2013 PHILIP OPEN HEARTH DOOR LINER, MELANI S 700 CALLUS/CORN 12/26/2013 PHILIP OPEN HEARTH DOOR LINER, MELANI S 700 CALLUS/CORN 12/26/2013 PHILIP OPEN HEARTH DOOR LINER, MELANI S 700 CALLUS/CORN 12/26/2013 PHILIP OPEN HEARTH DOOR LINER, MELANI S 700 CALLUS/CORN 12/26/2013 PHILIP OPEN HEARTH DOOR LINER, MELANI S 700 CALLUS/CORN 12/26/2013 PHILIP OPEN HEARTH DOOR LINER, MELANI S 700 CALLUS/CORN 12/26/2013 PHILIP OPEN HEARTH DOOR LINER, MELANI S 700 CALLUS/CORN 12/26/2013 PHILIP OPEN HEARTH DOOR LINER, MELAIN S 700 CALLUS/CORN 12/26/2013 PHILIP OPEN HEARTH DOOR LINER, MELANI S 700 CALLUS/CORN 12/26/2013 PHILIP OPEN HEARTH DOOR LINER, MELANI S 700 CALLUS/CORN 12/26/2013 FANTASMA PHD, SAM Covarrubias 700 CALLUS/CORN 03/20/2014 PHILIP OPEN HEARTH DOOR LINER, MELANI S 787.99 OTHER SYMPTOMS INVOLVING DIGESTIVE SYSTEM 03/20/2014 PHILIP OPEN HEARTH DOOR LINER, MELANI S 787.99 OTHER SYMPTOMS INVOLVING DIGESTIVE SYSTEM 03/20/2014 PHILIP OPEN HEARTH DOOR LINER, MELANI S 787.99 OTHER SYMPTOMS INVOLVING DIGESTIVE SYSTEM 03/20/2014 PHILIP OPEN HEARTH DOOR LINER, MELANI S 787.99 OTHER SYMPTOMS INVOLVING DIGESTIVE SYSTEM 03/20/2014 PHILIP OPEN HEARTH DOOR LINER, MELANI S 787.99 OTHER SYMPTOMS INVOLVING DIGESTIVE SYSTEM 03/20/2014 PHILIP OPEN HEARTH DOOR LINER, MELANI S 787.99 OTHER SYMPTOMS INVOLVING DIGESTIVE SYSTEM 03/20/2014 PHILIP OPEN HEARTH DOOR LINER, MELANI S 787.99 OTHER SYMPTOMS INVOLVING DIGESTIVE SYSTEM 03/20/2014 FANTASMA PHD, SAM Covarrubias 787.99 OTHER SYMPTOMS INVOLVING DIGESTIVE SYSTEM 06/03/2014 PHILIP OPEN HEARTH DOOR LINER, MELANI S 461.9 SINUSITIS ACUTE 06/03/2014 PHILIP OPEN HEARTH DOOR LINER, MELANI S 461.9 SINUSITIS ACUTE 06/03/2014 PHILIP OPEN HEARTH DOOR LINER, MELANI S 461.9 SINUSITIS ACUTE 06/03/2014 PHILIP OPEN HEARTH DOOR LINER, MELANI S 461.9 SINUSITIS ACUTE 06/03/2014 PHILIP OPEN HEARTH DOOR LINER, MELANI S 461.9 SINUSITIS ACUTE 06/03/2014 PHILIP OPEN HEARTH DOOR LINER, MELANI S 461.9 SINUSITIS ACUTE 06/03/2014 FANTASMA [...] BOOTHE Ot 914.5 INSECT BITE HAND-INFECT 07/12/2014 NEIL FAUSTIN WALKER L Ot E000.8 OTHER EXTERNAL CAUSE STATUS 07/12/2014 WALKER BOOTHE Ot E849.0 ACCIDENT IN HOME 07/12/2014 WALKER BOOTHE Ot E906.4 NONVENOM ARTHROPOD BITE 07/14/2014 PHILIP OPEN HEARTH DOOR LINER, MELANI S 682.2 CELLULITIS AND ABSCESS OF TRUNK 07/14/2014 PHILIP OPEN HEARTH DOOR LINER, MELANI S 682.2 CELLULITIS AND ABSCESS OF TRUNK 07/14/2014 PHILIP OPEN HEARTH DOOR LINER, MELANI S 682.2 CELLULITIS AND ABSCESS OF TRUNK 07/14/2014 PHILIP OPEN HEARTH DOOR LINER, MELANI S 682.2 CELLULITIS AND ABSCESS OF TRUNK 07/14/2014 PHILIP OPEN HEARTH DOOR LINER, MELANI S 682.2 CELLULITIS AND ABSCESS OF TRUNK 07/14/2014 FANTASMA PHD, SAM Covarrubias 682.2 CELLULITIS AND ABSCESS OF TRUNK 07/17/2014 PHILIP OPEN HEARTH DOOR LINER, MELANI S 787.01 NAUSEA WITH VOMITING 07/17/2014 PHILIP OPEN HEARTH DOOR LINER, MELANI S 789.00 ABDOMINAL PAIN UNSPECIFIED SITE 07/17/2014 PHILIP OPEN HEARTH DOOR LINER, MELANI S 787.01 NAUSEA WITH VOMITING 07/17/2014 PHILIP OPEN HEARTH DOOR LINER, MELANI S 789.00 ABDOMINAL PAIN UNSPECIFIED SITE 07/17/2014 PHILIP OPEN HEARTH DOOR LINER, MELANI S 787.01 NAUSEA WITH VOMITING 07/17/2014 PHILIP OPEN HEARTH DOOR LINER, MELANI S 789.00 ABDOMINAL PAIN UNSPECIFIED SITE 07/17/2014 PHILIP OPEN HEARTH DOOR LINER, MELANI S 787.01 NAUSEA WITH VOMITING 07/17/2014 PHILIP OPEN HEARTH DOOR LINER, MELANI S 789.00 ABDOMINAL PAIN UNSPECIFIED SITE 07/17/2014 FANTASMA PHD, SAM Covarrubias 787.01 NAUSEA WITH VOMITING 07/17/2014 FANTASMA PHD, SAM Covarrubias 789.00 ABDOMINAL PAIN UNSPECIFIED SITE 08/03/2014 EDA BARTON DO Ot 789.01 ABDOMINAL PAIN, RIGHT UPPER QUADRANT 09/17/2014 PHILIP OPEN HEARTH DOOR LINER, MELANI S V15.82 NICOTINE ABUSE 09/17/2014 PHILIP MARTINESN, MELANI S V15.82 NICOTINE ABUSE 09/17/2014 MELANI PALACIOS APRN V15.82 NICOTINE ABUSE 09/17/2014 FANTASMA SHAH, SAM Covarrubias V15.82 NICOTINE ABUSE 10/09/2014 MELANI PALACIOS TABBER Ot 682.2 10/09/2014 MELANI PALACIOS TABBER Ot 787.01 10/09/2014 MELANI PALACIOS TABBER Ot 789.00 10/28/2014 MELANI PALACIOS TABBER Ot 682.2 10/28/2014 MELANI PALACIOS TABBER Ot 787.01 10/28/2014 MELANI PALACIOS TABBER Ot 789.00 12/02/2014 MELANI PALACIOS APRN 077.99 UNSPECIFIED DISEASES OF CONJUNCTIVA DUE TO VIRUSES 12/02/2014 MELANI PALACIOS APRN 077.99 UNSPECIFIED DISEASES [...] VASCULAR INSUFFICIENCY OF INTESTINE 02/06/2015 MELANI PALACIOS TABBER Ot 440.8 02/06/2015 MELANI PALACIOS TABBER Ot 557.1 02/06/2015 MELANI PALACIOS TABBER Ot 592.0 02/18/2015 MELANI PALACIOS TABBER Ot 440.8 02/18/2015 MELANI PALACIOS TABBER Ot 557.1 02/18/2015 MELANI PALACIOS TABBER Ot 592.0 02/23/2015 FANTASMA SHAH, SAM Covarrubias 296.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 02/23/2015 FANTASMA SHAH, SAM Covarrubias 300.02 AN GEN ANXIETY 10/07/2016 Ot 724.2 LUMBAGO 10/07/2016 Ot V17.81 FAMILY HISTORY, OSTEOPOROSIS 10/07/2016 Ot V82.81 SCREENING FOR OSTEOPOROSIS 10/07/2016 SU TOYA EVANSLAKESHA Covarrubias Ot 305.20 CANNABIS ABUSE-UNSPEC 10/07/2016 ARA SU DO D Ot 530.81 ESOPHAGEAL REFLUX 10/07/2016 TOYA SU DOTT D Ot 787.99 OTHER GI SYSTEM SYMPTOMS 10/07/2016 ARA SU DO D Ot V64.3 NO PROC FOR REASONS NEC 10/07/2016 TOYA SU DOTT D Ot V72.84 EXAM PRE-OPERATIVE NOS 10/07/2016 TOYA SU DOTT D Ot V72.84 EXAM PRE-OPERATIVE NOS 10/07/2016 WALKER BOOTHE Ot 787.02 NAUSEA ALONE 10/07/2016 WALKER BOOTHE Ot 789.09 ABDOMINAL PAIN, OTHER SPECIFIED SITE 10/07/2016 MELANI PALACIOS TABBER Ot 682.2 CELLULITIS OF TRUNK 10/07/2016 MELANI PALACIOS TABBER Ot 787.01 NAUSEA WITH VOMITING 10/07/2016 MELANI PALACIOS TABBER Ot 789.00 ABDOMINAL PAIN, UNSPECIFIED SITE 10/07/2016 MELANI PALACIOS TABBER Ot 440.8 ATHEROSCLEROSIS NEC 10/07/2016 MELANI PALACIOS TABBER Ot 557.1 CHR VASC INSUFF INTEST 10/07/2016 MELANI PALACIOS TABBER Ot 592.0 CALCULUS OF KIDNEY 10/10/2016 Ot 724.2 LUMBAGO 10/10/2016 Ot V17.81 FAMILY HISTORY, OSTEOPOROSIS 10/10/2016 Ot V82.81 SCREENING FOR OSTEOPOROSIS 10/10/2016 GEORGES EVANS ARA D Ot 305.20 CANNABIS ABUSE-UNSPEC 10/10/2016 SU ARA D Ot 530.81 ESOPHAGEAL REFLUX 10/10/2016 GEORGES EVANS ARA D Ot 787.99 OTHER GI SYSTEM SYMPTOMS 10/10/2016 GEORGES EVANS ARA D Ot V64.3 NO PROC FOR REASONS NEC 10/10/2016 TOYA SU DOTT D Ot V72.84 EXAM PRE-OPERATIVE NOS 10/10/2016 SU ARA D Ot V72.84 EXAM PRE-OPERATIVE NOS 10/10/2016 WALKER BOOTHE Ot 787.02 NAUSEA ALONE 10/10/2016 WALKER BOOTHE Ot 789.09 ABDOMINAL PAIN, OTHER SPECIFIED SITE 10/10/2016 MELANI PALACIOS TABBER Ot 682.2 CELLULITIS OF TRUNK 10/10/2016 MELANI PALACIOS TABBER Ot 787.01 NAUSEA WITH VOMITING 10/10/2016 MELANI PALACIOS TABBER Ot 789.00 ABDOMINAL PAIN, UNSPECIFIED SITE 10/10/2016 MELANI PALACIOS TABBER Ot 440.8 ATHEROSCLEROSIS NEC 10/10/2016 MELANI PALACIOS TABBER Ot 557.1 CHR VASC INSUFF INTEST 10/10/2016 MELANI PALACIOS TABBER Ot 592.0 CALCULUS OF KIDNEY 10/10/2016 MELANI PALACIOS TABBER Ot 682.2 CELLULITIS OF TRUNK 10/10/2016 MELANI PALACIOS TABBER Ot 787.01 NAUSEA WITH VOMITING 10/10/2016 MELANI PALACIOS TABBER Ot 789.00 ABDOMINAL PAIN, UNSPECIFIED SITE 10/10/2016 MELANI PALACIOS TABBER Ot 682.2 CELLULITIS OF TRUNK 10/10/2016 MELANI PALACIOS TABBER Ot 787.01 NAUSEA WITH VOMITING 10/10/2016 MELANI PALACIOS TABBER Ot 789.00 ABDOMINAL PAIN, UNSPECIFIED SITE 10/11/2016 MELANI PALACIOS TABBER Ot M54.5 LOW BACK PAIN 11/16/2016 MELANI PALACIOS TABBER Ot M54.5 LOW BACK PAIN 11/17/2016 MELANI PALACIOS TABBER Ot M54.5 LOW BACK PAIN 11/24/2016 MELANI PALACIOS TABBER Ot 682.2 CELLULITIS OF TRUNK 11/24/2016 MELANI PALACIOS TABBER Ot 787.01 NAUSEA WITH VOMITING 11/24/2016 MELANI PALACIOS TABBER Ot 789.00 ABDOMINAL PAIN, UNSPECIFIED SITE 11/24/2016 MELANI PALACIOS TABBER Ot M54.5 LOW BACK PAIN 11/25/2016 SYLWIA PAYTON DO Ot N83.201 UNSPECIFIED OVARIAN CYST, RIGHT SIDE 11/25/2016 PAYTON DO, SYLWIA C Ot R10.2 PELVIC AND PERINEAL PAIN 11/25/2016 PAYTON DO, SYLWIA C Ot R92.0 MAMMOGRAPHIC MICROCALCIFICATION FOUND ON 11/25/2016 PAYTON DO, SYLWIA C Ot Z12.31 ENCNTR SCREEN MAMMOGRAM FOR MALIGNANT NE 11/25/2016 PAYTON DO, SYLWIA C Ot Z87.42 PERSONAL HISTORY OF OTH DISEASES OF THE 11/25/2016 PAYTON DO, SYLWIA C Ot Z90.710 ACQUIRED ABSENCE OF BOTH CERVIX AND UTER 11/25/2016 PAYTON DO, SYLWIA C Ot N83.201 UNSPECIFIED OVARIAN CYST, RIGHT SIDE 11/25/2016 PAYTON DO, SYLWIA C Ot R10.2 PELVIC AND PERINEAL PAIN 11/25/2016 PAYTON DO, SYLWIA C Ot R92.0 MAMMOGRAPHIC MICROCALCIFICATION FOUND ON 11/25/2016 PAYTON DO, SYLWIA C Ot Z12.31 ENCNTR SCREEN MAMMOGRAM FOR MALIGNANT NE 11/25/2016 PAYTON DO SYLWIA C Ot Z87.42 PERSONAL HISTORY OF OTH DISEASES OF THE 11/25/2016 PAYTON DO, SYLWIA C Ot Z90.710 ACQUIRED ABSENCE OF BOTH CERVIX AND UTER 12/09/2016 PAYTON DO, SYLWIA C Ot N83.201 UNSPECIFIED OVARIAN CYST, RIGHT SIDE 12/09/2016 PAYTON DO, SYLWIA C Ot R10.2 PELVIC AND PERINEAL PAIN 12/09/2016 PAYTON DO, SYLWIA C Ot R92.0 MAMMOGRAPHIC MICROCALCIFICATION FOUND ON 12/09/2016 PAYTON DO, SYLWIA C Ot Z12.31 ENCNTR SCREEN MAMMOGRAM FOR MALIGNANT NE 12/09/2016 PAYTON DO, SYLWIA C Ot Z87.42 PERSONAL HISTORY OF OTH DISEASES OF THE 12/09/2016 PAYTON DO, SYLWIA C Ot Z90.710 ACQUIRED ABSENCE OF BOTH CERVIX AND UTER 12/09/2016 PAYTON DO, SYLWIA C Ot N83.201 UNSPECIFIED OVARIAN CYST, RIGHT SIDE 12/09/2016 PAYTON DO, SYLWIA C Ot R10.2 PELVIC AND PERINEAL PAIN 12/09/2016 PAYTON DO, SYLWIA C Ot R92.0 MAMMOGRAPHIC MICROCALCIFICATION FOUND ON 12/09/2016 PAYTON DO, SYLWIA C Ot Z12.31 ENCNTR SCREEN MAMMOGRAM FOR MALIGNANT NE 12/09/2016 SYLWIA PAYTON DO Ot Z87.42 PERSONAL HISTORY OF OTH DISEASES OF THE 12/09/2016 SYLWIA PAYTON DO Ot Z90.710 ACQUIRED ABSENCE OF BOTH CERVIX AND UTER 12/13/2016 SYLWIA PAYTON DO Ot R92.1 MAMMOGRAPHIC CALCIFCN FOUND ON DIAGNOSTI 12/13/2016 PAYTON SYLWIA EVANS Ot R92.8 OTH ABN AND INCONCLUSIVE FINDINGS ON DX 01/03/2017 SYLWIA PAYTON DO Ot R92.1 MAMMOGRAPHIC CALCIFCN FOUND ON DIAGNOSTI 01/03/2017 SYLWIA PAYTON DO Ot R92.8 OTH ABN AND INCONCLUSIVE FINDINGS ON DX 01/03/2017 SYLWIA PAYTON DO Ot R92.1 MAMMOGRAPHIC CALCIFCN FOUND ON DIAGNOSTI 01/03/2017 SYLWIA PAYTON DO Ot R92.8 OTH ABN AND INCONCLUSIVE FINDINGS ON DX Procedures Code [place] [address] PAP SMEAR 09/28/2012 Physical Physical Therapy, [facility] 10/10/2012 45978 MAMMOGRAM, SCREENING 10/20/2012 Q0091 PAP SMEAR OBTAIN SMEAR 10/20/2012 60758 UA LONG DIP 10/20/2012 35480 ROUTINE VENIPUNCTURE 03/06/2013 01617 CBC 03/06/2013 54754 CMP 03/06/2013 74288 LIPID PANEL 03/06/2013 8590076 GFR CALC (RESULT ONLY) 03/06/2013 24713 TSH 03/06/2013 39538 INSULIN LEVEL 03/07/2013 80599 PSYCH DIAGNOSTIC EVALUATION 10/29/2013 45551 PSYTX PT&/FAMILY 45 MINUTES 11/12/2013 11102 ROUTINE VENIPUNCTURE 12/12/2013 84205 CBC 12/12/2013 7542252 GFR CALC (RESULT ONLY) 12/12/2013 08739 CMP 12/12/2013 46177 LIPID PANEL 12/12/2013 92354 SED/ESR RATE IN HOUSE 12/12/2013 00334 TSH 12/12/2013 85101 PARING SKIN LESIONS 2-4 ( BENIGN) 12/26/2013 Radhaent Mahad Kan 12/26/2013 J2550 PHENERGAN INJECTION UP TO 50 MG 07/14/2014 61765 THERAPUTIC INJ SQ/IM 07/14/2014 J1885 TORADOL INJ 07/14/2014 J0696 ROCEPHIN INJ 250 MG 07/14/2014 87922 HIDA SCAN 07/29/[address] ANGIO, PELVIS 01/29/[address] ANGIO, ABDOMEN 01/29/2015 97689 PSYCH DIAGNOSTIC EVALUATION 02/23/2015 Results There is no data. Encounters ACCT No. Visit Date/Time Discharge Status Pt. Type Provider Facility Loc./Unit Complaint [id number] 12/09/2016 08:09:00 12/09/2016 23:59:59 CLS Outpatient SYLWIA PAYTON DO [facility] RAD ABNORMAL MAMMO OF LEFT BREAST [id number] 11/24/2016 09:37:00 11/24/2016 23:59:59 CLS Outpatient SYLWIA PAYTON DO [facility] RAD CHRONIC FEMALE PELVIC PAIN, HX OF ENDOMETRIOSIS [id number] 10/10/2016 10:20:00 10/10/2016 23:59:59 CLS Outpatient MELANI PALACIOS [facility] RAD LOW BACK PAIN [id number] 01/29/2015 09:41:00 01/29/2015 23:59:59 CLS Outpatient MELANI PALACIOS [facility] RAD CHRONIC VASUCLAR INSUFFICIENCY OF INTESTINE [id number] 08/03/2014 09:35:00 08/03/2014 12:16:00 DIS Emergency EDA BARTON DO [facility] ER ABD SWELLING [id number] 07/29/2014 12:18:00 07/29/2014 23:59:59 CLS Outpatient MELANI PALACIOS [facility] CARD N/V,ABD PAIN [id number] 07/15/2014 07:57:00 07/15/2014 23:59:59 CLS Outpatient WALKER BOOTHE [facility] RAD RUQ PAIN [id number] 07/12/2014 10:08:00 07/12/2014 12:54:00 DIS Emergency WALKER BOOTHE [facility] ER ADB PAIN INSECT BITE [id number] 06/17/2014 11:56:00 06/17/2014 15:00:00 DIS Outpatient SU DO ARA D [facility] SMALL STOOLS;REFLUX [id number] 06/15/2014 13:41:00 06/15/2014 15:51:00 DIS Emergency WALKER BOOTHE [facility] ER BACK PAIN [id number] 06/11/2014 07:07:00 06/11/2014 23:59:59 CLS Outpatient SU DO ARA D [facility] PREOP SMALL STOOLS;REFLUX [id number] 05/27/2014 12:02:00 05/27/2014 23:59:59 CLS Outpatient SU DO ARA D [facility] SMALL STOOLS;REFLUX [id number] 05/21/2014 08:17:00 05/21/2014 23:59:59 CLS Outpatient SU DO ARA D [facility] PREOP SMALL STOOLS;REFLUX [id number] 10/13/2017 08:53:00 ACT Emergency JIM YOUNG MD [facility] ER DENTAL PAIN,SINUS INFECTION [id number] 12/28/2014 21:50:00 Document Registration [id number] 11/11/2011 09:58:00 Document Registration [id number] 09/28/2010 00:53:00 Document Registration [id number] 02/23/2015 16:33:00 02/23/2015 23:59:59 CLS Outpatient FANTASMA SHAH, SAM Covarrubias [id number] 01/08/2015 15:55:00 01/08/2015 23:59:59 CLS Outpatient MELANI PALACIOS APRN [id number] 12/02/2014 09:09:00 12/02/2014 23:59:59 CLS Outpatient MELANI PALACIOS APRN [id number] 09/17/2014 15:55:00 09/17/2014 23:59:59 CLS Outpatient MELANI PALACIOS APRN [id number] 07/17/2014 16:25:00 07/17/2014 23:59:59 CLS Outpatient MELANI PALACIOS APRN [id number] 07/14/2014 15:21:00 07/14/2014 23:59:59 CLS Outpatient PHILIP OPEN HEARTH DOOR LINERMABELA S [id number] 06/03/2014 15:32:00 06/03/2014 23:59:59 CLS Outpatient PHILIP OPEN HEARTH DOOR LINERTOYAMELANI S [id number] 03/20/2014 17:31:00 03/20/2014 23:59:59 CLS Outpatient PHILIP OPEN HEARTH DOOR LINERTOYAMELANI S [id number] 03/13/2014 16:07:00 03/13/2014 23:59:59 CLS Outpatient PHILIP OPEN HEARTH DOOR LINERTOYAMELANI S [id number] 02/03/2014 00:00:00 02/03/2014 23:59:59 CLS Outpatient PHILIP OPEN HEARTH DOOR LINERTOYAMELANI S [id number] 01/03/2014 00:00:00 01/03/2014 23:59:59 CLS Outpatient PHILIP OPEN HEARTH DOOR LINERTOYAMELANI S [id number] 12/26/2013 15:49:00 12/26/2013 23:59:59 CLS Outpatient PHILIP OPEN HEARTH DOOR LINERTOYAMELANI S [id number] 12/12/2013 15:50:00 12/12/2013 23:59:59 CLS Outpatient PHILIP OPEN HEARTH DOOR LINERTOYAMELANI S [id number] 11/20/2013 11:16:00 11/20/2013 23:59:59 CLS Outpatient PHILIP OPEN HEARTH DOOR LINERMABELA S [id number] 11/06/2013 16:24:00 11/06/2013 23:59:59 CLS Outpatient VALERIE MARAVILLA LCPC [id number] 10/29/2013 08:55:00 10/29/2013 23:59:59 CLS Outpatient VALERIE MARAVILLA LCPC [id number] 10/08/2013 11:36:00 10/08/2013 23:59:59 CLS Outpatient PHILIP OPEN HEARTH DOOR LINERTOYAMELANI S [id number] 03/06/2013 14:09:00 03/06/2013 23:59:59 CLS Outpatient PHILIP OPEN HEARTH DOOR LINERTOYAMELANI S [id number] 10/20/2012 13:53:00 10/20/2012 23:59:59 CLS Outpatient PHILIP OPEN HEARTH DOOR LINERTOYAMELANI S [id number] 09/25/2012 13:26:00 09/25/2012 23:59:59 CLS Outpatient [id number] 09/03/2012 11:16:00 09/03/2012 23:59:59 [facility] Outpatient MELANI PALACIOS APRN
--- NOTE | 2017-10-13 09:14 | ED EENT ---
History of Present Illness General Chief Complaint: Dental Problems/Pain Stated Complaint: DENTAL PAIN,SINUS INFECTION Nursing Triage Note: ARRIVED VIA AMB TO ROOM 05. COMPLAINS OF RIGHT SIDED DENTAL PAIN ET STATES SHE HAS A BROKEN TOOTH. STATES SHE JUST FINISHED 10DAYS OF ABX FOR A SINUS INFECTION. Source: patient, family Exam Limitations: no limitations History of Present Illness Time seen by provider: 09:09 Initial Comments This 47-year-old white female presents with a complaint of severe right-sided facial pain that has been present for the last 10 days. The patient initially thought that she had a sinus infection and has been using Levaquin 500 mg a day. The patient has subsequently realized that she has a broken tooth in the right mandibular area which she now believes is the source of her pain. There's been no associated headache or stiff neck. She denies photophobia. She denies significant fever or chill. She's had no associated productive cough , nausea, or vomiting. The patient has an appointment with her dentist at 3 o'clock this afternoon. The patient is requesting initiation of penicillin and pain medication in the interim. Allergies and Home Medications Allergies Coded Allergies: acetaminophen (Unverified Allergy, Mild, 06/15/14) ITCHING oxycodone (Unverified Allergy, Mild, 06/15/14) ITCHING Uncoded Allergies: ENVIRONMENTAL (Allergy, Mild, 06/15/14) Home Medications Aspirin 325 Mg Tabec, 325 MG PO DAILY, (Reported) Esomeprazole Mag Trihydrate 40 Mg Capsule.dr, 40 MG PO DAILY, (Reported) Lorazepam 0.5 Mg Tablet, 0.5 MG PO TID PRN for ANXIETY, (Reported) Quinapril/Hydrochlorothiazide 1 Tab Tablet, 1 TAB PO DAILY, (Reported) Tramadol Hcl 50 Mg Tablet, 50 MG PO TID PRN for PAIN, (Reported) Review of Systems Constitutional: No chills, No fever Eyes: Denies Photophobia Ears: Denies Pain Nose: denies epistaxis Mouth: other (right mandibular dental caries.) Throat: denies pain, denies swelling Respiratory: No cough Cardiovascular: No chest pain Gastrointestinal: No abdominal pain, No diarrhea, No nausea, No vomiting Musculoskeletal: No back pain Skin: No rash Neurological: No Symptoms Reported Hematologic/Lymphatic: No Symptoms Reported Immunological/Allergic: no symptoms reported Past Ghbnhwg-Ztubaw-Wnsjwy Hx Patient Social History Alcohol Use: Denies Use Recreational Drug Use: No Smoking Status: Current Everyday Smoker Recent Foreign Travel: No Contact w/Someone Who Travel: No Recent Infectious Disease Expo: No Recent Hopitalizations: Yes (FOR THE OF 3 CHILDREN) Immunizations Up To Date Date of Pneumonia Vaccine: May 30, 2012 Seasonal Allergies Seasonal Allergies: Yes Surgeries History of Surgeries: Yes (D&C, HEART CATH, EGD, COLONOSCOPY) Surgeries: Hysterectomy, Tubal Ligation Respiratory History of Respiratory Disorde: No Respiratory Disorders: COPD Cardiovascular History of Cardiac Disorders: Yes Cardiac Disorders: Hypertension Neurological History of Neurological Disord: No Reproductive System Hx Reproductive Disorders: Yes (DNC) Female Reproductive Disorders: 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 [employer]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 Gastrointestinal History of Gastrointestinal Di: Yes (CHRONIC ABD PAIN) Gastrointestinal Disorders: Gastroesophageal Reflux Musculoskeletal History of Musculoskeletal Dis: Yes Musculoskeletal Disorders: Chronic Back Pain Endocrine History of Endocrine Disorders: No Cancer History of Cancer: Yes Cancer: Cervical Psychosocial History of Psychiatric Problem: Yes Behavioral Health Disorders: Anxiety Integumentary History of Skin or Integumenta: No Blood Transfusions History of Blood Disorders: No Reviewed Nursing Assessment Reviewed/Agree w Nursing PMH: Yes Family Medical History Significant Family History: No Pertinent Family Hx Family Medial History: FH: breast cancer Maternal Aunt, Onset:Unknown FH: cancer Maternal Grandma, Onset:Unknown Myocardial infarction 19 FATHER, Onset:Unknown Physical Exam Vital Signs Vital Sign - Last 12Hours 10/13/17 08:55 Temp 98.0 Pulse 84 Resp 18 B/P (MAP) 142/94 (110) Pulse Ox 95 General Appearance: WD/WN, mild distress Eyes: bilateral eye normal inspection Ears: bilateral ear auricle normal Nose: normal inspection Mouth/Throat: other (there is dental caries with associated marked tenderness to palpation over the second molar of the right mandible.) Neck: non-tender, supple Cardiovascular: regular rate, rhythm Respiratory: chest non-tender, lungs clear, normal breath sounds Gastrointestinal: normal bowel sounds, non tender, soft Neurologic/Psychiatric: no motor/sensory deficits, alert, normal mood/affect Skin: normal color, warm/dry Progress/Results/Core Measures Results/Orders My Orders Orders - JIM YOUNG MD Penicillin Vk Tablet (Veetid Tablet) (10/13/17 09:15) Vital Signs/I&O Vital Sign - Last 12Hours 10/13/17 08:55 Temp 98.0 Pulse 84 Resp 18 B/P (MAP) 142/94 (110) Pulse Ox 95 Blood Pressure Mean: 110 Progress Note : Time: 09:14 Progress Note There was no evidence of significant facial swelling or point tenderness over the sinuses. The patient did not appear septic. Believe the source of the patient's pain is from her dental caries in the right mandibular area. The patient received a gram of Pen-Vee K orally in the emergency department. Recommend the patient keep her appointment at 3 o'clock with her dentist. She was given a prescription for Pen-Vee K and Vicodin. Departure Impression Impression: Primary Impression: Dental caries Disposition: 01 HOME, SELF-CARE Condition: Improved Departure-Patient Inst. Decision time for Depature: 09:15 Referrals: FLORA CALDERÓN DO (PCP) Primary Care Physician MELANI PALACIOS (Family) Primary Care Physician Patient Instructions: Dental Pain (DC) Add. Discharge Instructions: Pen-Vee K and Vicodin as prescribed. Follow-up with your dentist as scheduled at 3 p.m. today. Return of any problems or questions. All discharge instructions reviewed with patient and/or family. Voiced understanding. JIM YOUNG MD Oct 13, 2017 09:14
[2017-10-13] MEDS ORDERED: PENICILLIN V K 250 MG TAB PO ONE (09:15)
== END 2017-10-13 09:20 | disposition home or self-care (01) ==
LOC: EDUNIT# 08:50 → ER 08:53
DX: K02.9 Dental caries, unspecified (principal); F41.9 Anxiety disorder, unspecified; J44.9 Chronic obstructive pulmonary disease, unspecified; I10 Essential (primary) hypertension; K21.9 Gastro-esophageal reflux disease without esophagitis; F17.200 Nicotine dependence, unspecified, uncomplicated; Z90.710 Acquired absence of both cervix and uterus; Z80.3 Family history of malignant neoplasm of breast; Z82.49 Family history of ischemic heart disease and other diseases of the circulatory system; Z85.41 Personal history of malignant neoplasm of cervix uteri; Z98.51 Tubal ligation status; Z79.82 Long term (current) use of aspirin
CPT/HCPCS: 99282

== ENCOUNTER → 2017-11-21 | Outpatient (CLI) | payer SELFPAY | LOC: RAD 16:09 | PROVIDERS: ATTEND Nurse Practitioner | DX: Z53.8 Procedure and treatment not carried out for other reasons (principal); M75.121 Complete rotator cuff tear or rupture of right shoulder, not specified as traumatic ==

== ENCOUNTER 2018-05-07 10:17 | Outpatient (RCR) | payer SELFPAY | END 2018-05-15 11:29 | disposition home or self-care (01) | PROVIDERS: ATTEND Orthopaedic Surgery | DX: M75.121 Complete rotator cuff tear or rupture of right shoulder, not specified as traumatic (principal) ==

== ENCOUNTER 2021-05-24 05:19 | Emergency (ER) | payer BC, OTHER ==
[~2021-05-24] VITALS: Ht 160 cm; Wt 100.0 kg
[2021-05-24 05:30] VITALS: BP 158/96
--- NOTE | 2021-05-24 06:59 | ED Cardiac General ---
History of Present Illness General Chief Complaint: Cardiac/General Problems Stated Complaint: HYPERTENSION 233/178 Nursing Triage Note: PT PRESENTS TO THE ED WITH CONCERNS OF HIGH BLOOD PRESSURE, HOME WRIST UNIT READ 233/178 SHORTLY BEFORE PT CAME TO ED. PT VERBALIZES YANG TODAY. STATES HER VISION WAS SLIGHTLY BLURRY YESTERDAY BUT CLEAR TODAY. VERBALIZES MILD EXERTIONAL SOB. Source: patient Exam Limitations: no limitations History of Present Illness Date Seen by Provider: May 24, 2021 Time Seen by Provider: 06:35 Initial Comments Here with report of high blood pressure at home. Denies chest pain, weakness, dizziness, sweating but does have some shortness of breath and a mild headache. She states that is typical. She has been dealing with this for a little while and is unsure if it is her cough. She states her blood pressure was initially up to 200 systolic at home but initial blood pressures here have been 150s over 100 and she states that is fairly normal for her. She follows with [facility]. She is on TOM inhibitor/HCTZ combination as prescribed from the clinic. She reports taking her meds as directed. She does still smoke. She was seen by a disability doctor yesterday and was noted to have blood pressure 150/100 there as well. Does complain of some mild sinus congestion that she states is ongoing for years. Patient does smoke. Timing/Duration: 1 hour Severity: mild Location: other (Mild headache without chest pain) Prior CP/Workup: cardiac cath, stress test NTG SL [employer]: No ASA po [employer]: No Associated Systoms: No Chest Pain, No Cough, No Diaphoresis, No Fever/Chills; Headaches; No Nausea/Vomiting; Shortness of Air; No Weakness Allergies and Home Medications Allergies Coded Allergies: acetaminophen (Unverified Allergy, Mild, 06/15/14) ITCHING oxycodone (Unverified Allergy, Mild, 06/15/14) ITCHING Uncoded Allergies: ENVIRONMENTAL (Allergy, Mild, 06/15/14) Home Medications Aspirin 325 Mg Tabec, 325 MG PO DAILY, (Reported) Esomeprazole Mag Trihydrate 40 Mg Capsule.dr, 40 MG PO DAILY, (Reported) Lorazepam 0.5 Mg Tablet, 0.5 MG PO TID PRN for ANXIETY, (Reported) Quinapril/Hydrochlorothiazide 1 Tab Tablet, 1 TAB PO DAILY, (Reported) Tramadol Hcl 50 Mg Tablet, 50 MG PO TID PRN for PAIN, (Reported) Patient Home Medication List Home Medication List Reviewed: Yes Review of Systems Review of Systems Constitutional: see HPI; No chills, No fever EENTM: Nose Congestion; No Throat Pain Respiratory: Denies Cough; Shortness of Air Cardiovascular: See HPI Gastrointestinal: Denies Nausea, Denies Vomiting Genitourinary: No Symptoms Reported Musculoskeletal: no symptoms reported Psychiatric/Neurological: No Symptoms Reported All Other Systems Reviewed Negative Unless Noted: Yes Past [id number]-[id number] Hx Patient Social History Tobacco Use?: Yes Tobacco type used: Cigarettes Smoking Status: Current Everyday Smoker Substance use?: No Alcohol Use?: No Immunizations Up To Date Influenza Vaccine Up-to-Date: No; Not Current Seasonal Allergies Seasonal Allergies: Yes Past Medical History Surgeries: Yes (D&C, HEART CATH, EGD, COLONOSCOPY) Hysterectomy, Tubal Ligation Respiratory: No COPD Cardiac: Yes Hypertension Neurological: No Reproductive Disorders: Yes (DNC) Female Reproductive Disorders: 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 Gastrointestinal: Yes (CHRONIC ABD PAIN) Gastroesophageal Reflux Musculoskeletal: Yes Chronic Back Pain Endocrine: No Cancer: Yes Cervical Psychosocial: Yes Anxiety Integumentary: No Blood Disorders: No Family Medical History Reviewed Nursing Family Hx FH: breast cancer Maternal Aunt, Onset:Unknown FH: cancer Maternal Grandma, Onset:Unknown Myocardial infarction 19 FATHER, Onset:Unknown No Pertinent Family Hx Physical Exam Vital Signs Vital Signs - First Documented 05/24/21 05:30 Temp 36.0 Pulse 95 Resp 18 B/P (MAP) 158/96 (116) Pulse Ox 96 O2 Delivery Room Air Capillary Refill : Less Than 3 Seconds Height, Weight, BMI Height: 5'3.00" Weight: 200lbs. 8.0oz. [id number]; 39.00 BMI Method:Stated General Appearance: No Apparent Distress, WD/WN, Obese Respiratory: Lungs Clear, Normal Breath Sounds Cardiovascular: Regular Rate, Rhythm, No Murmur Gastrointestinal: Non Tender, Soft Extremity: Normal Range of Motion, Non Tender, No Calf Tenderness Neurologic/Psychiatric: Alert, Oriented x3 Skin: Normal Color, Warm/Dry Progress/Results/Core Measures Results/Orders Vital Signs/I&O 05/24/21 05:30 Temp 36.0 Pulse 95 Resp 18 B/P (MAP) 158/96 (116) Pulse Ox 96 O2 Delivery Room Air Blood Pressure Mean: 116 Progress Progress Note : Progress Note Seen and evaluated. Blood pressure seems to be in normal range throughout the ED stay. She has elected to follow-up with clinic which I think is reasonable as her blood pressure is in her typical range and she likely needs some blood pressure adjustment. She denies chest pain. I did review her history and she had negative heart cath in 2009 and there is no EKG changes in comparison to EKG done then. Discharged home with return precautions. Patient verbalized understanding instructions and agreement with plan. Patient counseled to quit smoking as well as seeking Covid vaccination. She will talk to her doctor about that. Initial ECG Impression Date: May 24, 2021 Initial ECG Impression Time: 05:52 Initial ECG Rate: 83 Initial ECG Rhythm: Normal Sinus Initial ECG Comparisson: Unchanged Comment Sinus rhythm with normal axis. Rate 83. No evidence of ST elevation IA. Similar to previous of 09/29/2010. Interpreted by me. Departure Impression Primary Impression: Uncontrolled hypertension Disposition: HOME, SELF-CARE Condition: Stable Departure-Patient Inst. Decision time for Depature: 07:01 Referrals: RHONDA POSADA MD (PCP/Family) Primary Care Physician Patient Instructions: High Blood Pressure (DC) Add. Discharge Instructions: All discharge instructions reviewed with patient and/or family. Voiced understanding. Continue home blood pressure medicines as previously prescribed. Call the [facility] today and make appointment for recheck and further evaluation regarding your blood pressure as you will likely need adjustment. You can also discuss with them at that time about Covid vaccination as it would likely benefit you. Return for worse pain, fever, vomiting, weakness, breathing problems or other concerns as needed. JUANY LOVELL MD May 24, 2021 06:58
== END 2021-05-24 07:18 | disposition home or self-care (01) ==
LOC: EDUNIT# 05:19 → ER 05:21
DX: I10 Essential (primary) hypertension (principal); F41.9 Anxiety disorder, unspecified; K21.9 Gastro-esophageal reflux disease without esophagitis; J44.9 Chronic obstructive pulmonary disease, unspecified; F17.210 Nicotine dependence, cigarettes, uncomplicated; Z88.5 Allergy status to narcotic agent; Z79.82 Long term (current) use of aspirin; Z79.899 Other long term (current) drug therapy
CPT/HCPCS: 93005

== ENCOUNTER → 2021-10-28 | Outpatient (CLI) | payer BC | LOC: RAD 12:30 | PROVIDERS: ATTEND Nurse Practitioner Family | DX: M25.512 Pain in left shoulder (principal) ==